=== PATIENT | male | born 1970 ===

== ENCOUNTER 2020-09-11 13:10 | Outpatient (REF) | payer OTHER, MEDICAID, SELFPAY ==
--- NOTE | ~2020-09-11 | XR_ITS ---
EXAMINATION: THORACIC AND LUMBAR SPINE X-RAY CLINICAL INFORMATION: Pain COMPARISON: None TECHNIQUE: 3 views of the thoracic spine 5 views of the lumbar spine FINDINGS: Lumbar spine: Bone alignment is normal. No fracture or dislocation is seen. Disc spaces are normal. There is mild lower lumbar spine facet arthritis at L5. No pars defect is seen. Thoracic spine: Bone alignment is normal. No fracture or dislocation is seen. Disc spaces are normal. There is mild degenerative spondylosis of the mid to lower thoracic spine. Paraspinal soft tissues are unremarkable. XR/XR thoracic spine 2V IMPRESSION: Mild degenerative changes.
--- NOTE | ~2020-09-11 | XR_ITS ---
EXAMINATION: THORACIC AND LUMBAR SPINE X-RAY CLINICAL INFORMATION: Pain COMPARISON: None TECHNIQUE: 3 views of the thoracic spine 5 views of the lumbar spine FINDINGS: Lumbar spine: Bone alignment is normal. No fracture or dislocation is seen. Disc spaces are normal. There is mild lower lumbar spine facet arthritis at L5. No pars defect is seen. Thoracic spine: Bone alignment is normal. No fracture or dislocation is seen. Disc spaces are normal. There is mild degenerative spondylosis of the mid to lower thoracic spine. Paraspinal soft tissues are unremarkable. XR/XR lumbar spine 4V min IMPRESSION: Mild degenerative changes.
== END 2020-09-11 13:11 | disposition home or self-care (01) ==
LOC: HO.XRAY 13:10
PROVIDERS: PCP Internal Medicine; Referring Provider Internal Medicine; Visit Provider Emergency Medicine
DX: M54.5 Low back pain (principal)
CPT/HCPCS: 72070; 72110

== ENCOUNTER 2020-11-05 14:00 | Outpatient (RCR) | payer OTHER, MEDICAID, SELFPAY | END 2020-11-05 15:50 | disposition home or self-care (01) | LOC: HO.PT 14:00 | PROVIDERS: PCP Internal Medicine; Visit Provider Emergency Medicine | DX: M54.5 Low back pain (principal) | CPT/HCPCS: 97110; 97161; 97530 ==

== ENCOUNTER → 2020-11-26 07:56 | Outpatient (BNVA) | payer OTHER, MEDICAID, SELFPAY | PROVIDERS: PCP Internal Medicine; Referring Provider Internal Medicine; Visit Provider Physician Assistant ==

== ENCOUNTER 2021-01-29 09:02 | Day surgery (SDC) | payer OTHER, MEDICAID, SELFPAY ==
--- NOTE | 2021-01-29 09:18 | P.CONAN_ITS ---
HPI - Anesthesia Eval Consult details Narrative: 50 yo M for colonoscopy PMFSH Active Problems Active Problems: All Active Problems (Updated 01/23/21 @ 12:42 by Shirley Sharp RN) Encounter for screening colonoscopy (Acute) Past Medical History Medical History (Updated 01/23/21 @ 12:42 by Shirley Sharp, RN) HTN (hypertension) Hyperlipidemia IGT (impaired glucose tolerance) Left lumbar radiculopathy DAWNA (obstructive sleep apnea) Functional capacity: independent ambulation Family History Family history of problems with anesthesia: No Surgical History History of Problems with Anesthesia: No Social History Social History (Updated 11/26/20 @ 08:26 by Mounika Armstrong PA-C) Household Members Other:: Alcohol intake: never Patient Tobacco Use Status: Never used Tobacco Use of substances other than those prescribed or required for medical reasons: No Are you DNR?: No Advance Directives: No Advance Directives Information Provided: Yes Current occupational status: employed 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[employer], 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 [employer] Meds Allergies Allergy/AdvReac Type Severity Reaction Status Date / Time seafood Allergy Severe respiratory Verified 01/23/21 12:42 Home Medications Medication Instructions Recorded Confirmed Last Taken Type atorvastatin 10 mg tablet 10 mg PO DAILY 11/26/20 01/23/21 Unknown History chlorthalidone 25 mg tablet 25 mg PO DAILY 11/26/20 01/23/21 Unknown History metformin 500 mg tablet 500 mg PO DAILY 11/26/20 01/23/21 Unknown History Exam Exam Date and Time: January 29, 202118 Airway Mallampati Class: III TM Dist: >3cm Neck ROM: Full Loose/Missing/Broken Teeth: Yes Heart: rrr Lungs: b/l clear breath sounds Assessment and Plan Assessment Anesthesia Assessment: Anesthesia Plan Discussed Final Anesthetic Review Family History of Problems with Anesthesia: No History of Problems with Anesthesia: No NPO: Yes ASA Class: II Patient Risk: Intermediate Procedure Risk: Intermediate Anesthetic Plan Anesthetic Plan: MAC: Disposition: Standard PACU
[2021-01-29 09:26] LABS: Glucose, Whole Blood 115 mg/dL (60-115)
[2021-01-29 09:31] VITALS: BP 141/85; PULSE 74; RESP 20; TEMP 36.1; O2SAT 99; BMI 27.8
[2021-01-29] MEDS: Lactated Ringers 1,000 ML 80 ML IVCONT (09:44)
--- NOTE | 2021-01-29 09:44 | MHC.SHP ---
Pre-Procedural Eval Section A Date of Service: 01/29/21 Section B Chief Complaint: Screening Relevant Family History (Specify if Yes): No Relevant Social History: None Present Medications: see Short Stay Collaborative assessment Medical History: Significant History (HTN (hypertension) Hyperlipidemia IGT (impaired glucose tolerance) Left lumbar radiculopathy DAWNA (obstructive sleep apnea)) History of Previous Operations: No relevant previous surgery Allergies: Allergies Allergy/AdvReac Type Severity Reaction Status Date / Time seafood Allergy Severe respiratory Verified 01/23/21 12:42 Review of Systems Sugical H&P ROS: Negative: Constitution, Cardiovascular, Respiratory, Neurological, Psychiatric, Hem-Onc, Allergic/Immunologic, Gastrointestinal, Genitourinary, Musculoskeletal, Integumentary, Endocrine and Eyes/Ears/Nose/Throat Exam Surgical H&P Exam: Normal: HEENT, Normal: Heart, Normal: Lungs, Normal: Extremities, Normal: Abdomen, Normal: Skin and Normal: Neurological Plan Diagnosis/Plan: Unchanged I have reviewed the history and physical and performed a pertinent physical examination on my patient. No changes have occurred unless specified.
--- NOTE | 2021-01-29 10:21 | P.OP_ITS ---
Operative Note Operative Note Date of Service: 01/29/21 Narrative: Operative Information Procedure Description: Colonoscopy COLONOSCOPY Instrument: Olympus variable stiffness adult scope 190L Colonoscopy Monitoring: Vital signs and clinical assessment, continuous EKG monitoring, Pulse oximetry, Carbon Dioxide monitoring and blood pressure monitoring were done throughout the procedure. Colon withdrawal time was 8 minutes. Procedure: The patient was placed in the left lateral decubitis position and pre-procedure medications were administered. After a digital rectal examination of the ano-rectum, the video colonoscope was inserted into the rectum and advanced through the colon to the cecum/TI. The colonoscope was slowly withdrawn in a retrograde panoramic fashion and the colon mucosa was carefully examined including a retroflexed view of the rectum. Findings and interventions are described below. Procedure Difficulty: easy Findings: Terminal Ileum-normal Cecum:normal Ascending Colon: normal Transverse Colon -normal Descending Colon:normal Sigmoid Colon: normal Rectum: Retroflexion with small internal hemorrhoids, grade I Anorectum - normal Colon preparation: [place] Bowel Preparation Scale Right colon; 3 Transverse colon: 3 Left colon; 3 (0 = Unprepared colon segment with mucosa not seen due to solid stool that cannot be cleared. 1 = Portion of mucosa of the colon segment seen, but other areas of the colon segment not well seen due to staining, residual stool and/or opaque liquid. 2 = Minor amount of residual staining, small fragments of stool and/or opaque liquid, but mucosa of colon segment seen well. 3 = Entire mucosa of colon segment seen well with no residual staining, small fragments of stool or opaque liquid) Impression and Post Procedure Diagnosis: internal hemorrhoids Plan: High fiber diet leaflet Avoid straining at stool, epsom salts and sitz bath, anusol supps or cream Repeat Colonoscopy in 10 years or earlier if clinically indicated Above findings were reviewed with the patient and relevant handouts were provided if indicated.
--- NOTE | 2021-01-29 10:21 | PM.OP ---
Brief Operative Note Date of Service: 01/29/21 Pre-op diagnosis: colon screen Post-op diagnosis: same Procedure: see op note Surgeon: Shayne Hughes MD Anesthesia: MAC Was an Contact Center Analyst used for this Procedure?: No Estimated blood loss (mL): 0 Condition: stable Disposition: PACU
[2021-01-29 10:24] VITALS: BP 111/79; PULSE 73; RESP 16; TEMP 36.2; O2SAT 100
[2021-01-29 10:40] VITALS: BP 131/85; PULSE 72; RESP 16; TEMP 36.2; O2SAT 100
[2021-01-29 11:07] VITALS: BP 117/79; PULSE 64; RESP 16; O2SAT 100
== END 2021-01-29 11:35 | disposition home or self-care (01) ==
PROVIDERS: PCP Internal Medicine; Visit Provider Internal Medicine Gastroenterology
PROC: 0DJD8ZZ Inspection of Lower Intestinal Tract, Via Natural or Artificial Opening Endoscopic (ICD-10-PCS; CPT 45378; principal; 2021-01-29 10:10)
DX: Z12.11 Encounter for screening for malignant neoplasm of colon (principal); K64.0 First degree hemorrhoids; I10 Essential (primary) hypertension; E78.5 Hyperlipidemia, unspecified; G47.33 Obstructive sleep apnea (adult) (pediatric); R73.02 Impaired glucose tolerance (oral); Z79.84 Long term (current) use of oral hypoglycemic drugs; Z79.899 Other long term (current) drug therapy
CPT/HCPCS: 45378; 82947

== ENCOUNTER → 2022-03-17 14:56 | Outpatient (REF) | payer OTHER, MEDICAID, SELFPAY | LOC: HO.SL 14:56 | PROVIDERS: Visit Provider Nurse Practitioner Family | DX: G47.33 Obstructive sleep apnea (adult) (pediatric) (principal); R40.0 Somnolence | CPT/HCPCS: 95806 ==

== ENCOUNTER → 2022-05-22 14:42 | Outpatient (BNVA) | payer OTHER, MEDICAID, SELFPAY | PROVIDERS: PCP Internal Medicine; Visit Provider Nurse Practitioner Family | DX: Z13.89 Encounter for screening for other disorder (principal) ==

== ENCOUNTER 2022-09-15 12:53 | Outpatient (REF) | payer OTHER, MEDICAID, SELFPAY ==
--- NOTE | ~2022-09-15 | XR_ITS ---
EXAMINATION: XR LUMBOSACRAL SPINE CLINICAL INFORMATION: Chronic low back pain for years. COMPARISON: None available. TECHNIQUE: Three views of the lumbosacral spine. FINDINGS: The vertebral bodies and posterior elements are normal. The disc spaces are preserved and the vertebral alignment is normal. The paraspinal soft tissues are normal. XR/XR lumbar spine 2-3V IMPRESSION: Unremarkable lumbar spine exam.
== END 2022-09-15 12:54 | disposition home or self-care (01) ==
LOC: HO.HHCX 12:53
PROVIDERS: Visit Provider Nurse Practitioner Primary Care
DX: M54.16 Radiculopathy, lumbar region (principal)
CPT/HCPCS: 72100

== ENCOUNTER 2023-05-21 14:26 | Outpatient (AMB) | payer OTHER, SELFPAY ==
--- NOTE | 2023-05-21 14:38 | A.OFFVIS_ITS ---
Intake Vital Signs 05/21/23 14:44 Height 5 ft 11 in Weight 190 lb 6 oz BMI 26.5 BP 112/70 Blood Pressure Location Lt brachial Position Sitting Pulse 77 Pulse Source Pulse Oximeter Pulse Oximetry (%) 95 Oxygen Delivery Method Room Air Intake Visit Reasons: 1YR f/u after sleep test - LVM w/address Intake Note: Patient presents for 1 year f/u. Allergies seafood Allergy (Severe, Verified 05/21/23 14:43) respiratory HPI HPI Comments History of Present Illness Details 52 y/o male patient presents for follow up of DAWNA on CPAP. The home sleep study result was severe degree of sleep apnea. The AHI was 28/hr and oxygen nida was 83%. Pt states that he uses CPAP nightly, overall sleeps well and his body ache also has resolved. The CPAP compliance and therapy response (02/18/23-05/18/23) reviewed. He is on APAP [id number]. The usage days 99% and average usage hours 4 hours and 50 min. The max pressure is 7.4 and the AHI was 1.1. 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 Review of Systems Const All systems reviewed & are unremarkable except as noted in HPI and below ENT Reports Normal hearing present Neuro Reports Normal hearing present Physical Exam Vital Signs: Last Vital Signs Pulse 77 05/21/23 14:44 BP 112/70 05/21/23 14:44 Pulse Ox 95 05/21/23 14:44 Oxygen Delivery Method Room Air 05/21/23 14:44 BMI result Body Mass Index 26.5 Const General: cooperative Nutritional Appearance: average body habitus Orientation/consciousness: patient oriented x3 Neck Neck: Yes full ROM and Yes supple Resp Effort & Inspection: normal respiratory effort and able to speak in complete sentences Neuro General: patient oriented x3 and gait normal Cranial nerves: Yes Bilaterally intact EOM present, Yes Normal facial strength present, Yes Midline tongue present, Yes Symmetric palate elevation present, Yes Normal hearing present, Yes Ability to bilaterally rotate head present and Yes Ability to bilaterally elevate shoulders present Cognition (Neuro): normal cognition Gait exam (Neuro): Normal gait present Motor exam (neuro): 5/5 motor strength present throughout Psych Appearance: grossly normal Mental Status: mental status grossly normal Speech and movement: Normal speech and movement present Affect: normal affect Attitude: cooperative Assessment & Plan Assessment & Plan (1) DAWNA (obstructive sleep apnea): Code(s): G47.33 - Obstructive sleep apnea (adult) (pediatric) Plan Advised patient to continue to use APAP [id number] as patient experiences good clinical effects. Stressed compliance, uses CPAP nightly and more than 4 hours. Clean mask and tubing regularly. Coding Level of Care Code Est Pt Level 3 (27691) Diagnoses DAWNA (obstructive sleep apnea) G47.33
[2023-05-21 14:44] VITALS: BP 112/70; PULSE 77; O2SAT 95; BMI 26.5
== END 2023-05-21 14:56 | disposition home or self-care (01) ==
PROVIDERS: Visit Provider Nurse Practitioner Family
DX: G47.33 Obstructive sleep apnea (adult) (pediatric) (principal)
CPT/HCPCS: 99213

== ENCOUNTER → 2023-05-21 14:26 | Outpatient (BNVA) | payer OTHER, SELFPAY | PROVIDERS: Visit Provider Nurse Practitioner Family ==

== ENCOUNTER 2023-06-03 08:56 | Outpatient (AMB) | payer OTHER, SELFPAY ==
--- NOTE | 2023-06-03 08:58 | A.OFFVIS_ITS ---
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 Intake Note: New patient fx CAD c/o chest tightness at times Director Telecommunications Required: No Allergies seafood Allergy (Severe, Verified 05/21/23 14:43) respiratory [id number] Reductase Inhibitor Allergy (Intermediate, Verified 06/03/23 09:05) Muscle Pain Medication List - Last Reconciled 06/03/23 by Ricky Boateng MD bisacodyl (Dulcolax (bisacodyl)) 10 mg (2 x 5 mg) PO ONCE 1 day chlorthalidone 25 mg PO DAILY metformin ER 500 mg PO QPM HPI HPI Comments History of Present Illness Details Thank you for referring Arnaldo in cardiology consultation today for intermittent retrosternal chest tightness. He has a pleasant 52-year-old male, concerned about his heart health given his strong family history of premature coronary artery disease with his brother dying in his early 40s with sudden cardiac and father having an CO at age 60. He also has history of marked hyperlipidemia with last LDL of 190 mg/dL not corrected as he could not tolerate statin therapy with diffuse muscle aches. He also has history of hypertension and diabetes which are currently being managed through your office. He says blood pressures been well controlled. Her last few months he has been having intermittent episodes of retrosternal chest tightness, under stressful situations. Symptoms last for less than a minute. Usually happens at nighttime when he is concerned and symptoms then subside when he sits up. This associated with shortness of breath. He has no exertional chest pain or shortness of breath and says he is fairly active in his day-to-day life. Takes all his medications regularly. Denies any orthopnea, PND, leg edema. No prolonged palpitations irregular heartbeat. No lightheadedness, syncope. 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 Review of Systems Const Denies chills, Denies daytime sleepiness, Denies fatigue, Denies fever(s), Denies frequent falls, Denies poor appetite, Denies snoring, Denies stops breathing during sleep, Denies weakness, Denies weight gain and Denies weight loss Eyes Denies loss of vision ENT Denies dizziness and Denies hearing loss Card Denies chest pain, Denies claudication, Denies leg edema, Denies lightheadedness, Denies palpitations, Denies dyspnea, Denies dyspnea on exertion and Denies orthopnea Resp Denies cough, Denies excessive phlegm production, Denies dyspnea, Denies dyspnea on exertion, Denies snoring and Denies wheezing GI Denies abdominal pain, Denies hematochezia, Denies change in bowel habits, Denies nausea and Denies vomiting Denies dysuria and Denies urinary frequency Musc Denies arthralgias, Denies muscle weakness, Denies numbness and Denies other (frequent falls) Skin/Breast Denies nail changes and Denies rash Neuro Denies Abnormal speech present, Denies dizziness, Denies frequent falls, Denies loss of vision, Denies memory loss, Denies numbness and Denies weakness Psych Denies depression and Denies memory loss Endo Denies fatigue and Denies palpitations Vitor/Lymph Reports easy bruising and Reports other (anemia) Aller/Immun Denies wheezing Physical Exam Vital Signs: Last Vital Signs Pulse 67 06/03/23 08:59 BP 110/70 06/03/23 08:59 BMI result Body Mass Index 26.1 Const General: cooperative, comfortable, no acute distress, well developed, alert, awake and Physically active Nutritional Appearance: average body habitus and well nourished Orientation/consciousness: patient oriented x3 Limitations: no limitations HEENT Head: Yes normocephalic and Yes atraumatic Neck Neck: Yes trachea midline, Yes supple and Yes no JVD Resp Effort & Inspection: normal respiratory effort Auscultation: clear to auscultation bilaterally Cardio Jugular venous distension: no JVD Palpation: normal PMI Rate: regular rate Rhythm: regular rhythm Heart sounds: S1 normal heart sound present, S2 normal heart sound present, no click, no gallops, no murmurs and no rubs GI Auscultation: normal bowel sounds Skin General skin exam: no rashes or lesions noted Neuro General: patient oriented x3 and no focal motor deficits Speech: No Abnormal speech present Extrem General: Yes no clubbing, cyanosis or edema Psych Appearance: grossly normal Office Procedures EKG Details: EKG shows normal sinus rhythm with normal EKG [id number], Complete Assessment & Plan Assessment & Plan (1) Atypical chest pain: Code(s): R07.89 - Other chest pain Plan: Atypical chest pain in this middle-aged man although with significant risk factors including premature atherosclerosis/sudden cardiac that, hypertension, impaired glucose tolerance and marked hyperlipidemia. Need to rule out underlying obstructive coronary artery disease as he is having stress-induced chest discomfort although symptoms are atypical. Would suggest him to undergo a regular treadmill exercise stress test given that he has normal EKG. If he can perform high workload without any significant discomfort and EKG changes he most likely has nonobstructive disease. This was discussed with him. He understands agrees. Will also obtain echocardiogram to evaluate for LV systolic and diastolic function to evaluate for hypertensive heart disease and pulmonary hypertension and RV systolic function. These tests will be scheduled in near future and further treatment based on the findings. (2) HTN (hypertension): Code(s): I10 - Essential (primary) hypertension Plan: Hypertension which is currently well optimized. Importance of good blood pressure control was discussed. Continue CPAP therapy. Low-salt diet was discussed. Advised to monitor blood pressure at home maintain a log. Goal blood pressure less than 130/84. Continue aggressive risk factor modification goal hemoglobin A1c less than 7%. His LDL significantly elevated advised to follow-up lipid panel in near future. If he remains significantly elevated and with the statin intolerant would be a candidate for PCSK9 inhibitor therapy. This was discussed with him. Will also suggest a coronary calcium score to assess for presence of underlying coronary atherosclerosis and/or further risk stratification if he has significant elevated calcium score. He understands and agrees. Will follow up in the clinic in 6 weeks time, sooner p.r.n.. Thank you for allowing me to partake in his care Medications: Refilled bisacodyl (Dulcolax (bisacodyl)) Take 2 tablets by mouth at 12:00pm the day before your procedure. 10 mg (2 x 5 mg) PO ONCE 2 tabs 0RF colonoscopy prep 1 day Z12.11 - Encounter for screening for malignant neoplasm of colon Coding Level of Care Code New Pt Level 4 (28080) Diagnoses Atypical chest pain R07.89 HTN (hypertension) I10 CPT Codes EKG - CPT: 19530-[id number], Complete ([id number])
[2023-06-03 08:59] VITALS: BP 110/70; PULSE 67; BMI 26.1
== END 2023-06-03 09:31 | disposition home or self-care (01) ==
PROVIDERS: PCP Internal Medicine; Visit Provider Internal Medicine Cardiovascular Disease
DX: R07.89 Other chest pain (principal); I10 Essential (primary) hypertension
CPT/HCPCS: 93010; 99204

== ENCOUNTER → 2023-06-03 08:56 | Outpatient (BNVA) | payer OTHER, SELFPAY | PROVIDERS: PCP Internal Medicine; Visit Provider Internal Medicine Cardiovascular Disease | DX: R07.89 Other chest pain (principal); I10 Essential (primary) hypertension | CPT/HCPCS: 93005 ==

== ENCOUNTER 2023-06-12 07:24 | Outpatient (REF) | payer OTHER, SELFPAY ==
[2023-06-12 08:43] LABS: Alanine Aminotransferase 18 U/L (0-40); Albumin Level 4.1 g/dL (3.5-5.0); Alkaline Phosphatase 59 U/L (39-117); Anion Gap 14 (12-20); Aspartate Amino Transferase 16 U/L (5-37); Bilirubin Direct 0.2 mg/dL (0.0-0.5); Bilirubin Total 0.8 mg/dL (0.0-1.0); Blood Urea Nitrogen 16 mg/dL (9-16); Calcium 9.4 mg/dL (8.4-10.2); Carbon Dioxide 31 mmol/L (22-29); Chloride 100 mmol/L (96-108); Cholesterol 245 mg/dL (<200); Estimated Glomerular Filt Rate > 60; Glucose Random 128 mg/dL (60-115); HDL Cholesterol 43 mg/dL (>40); LDL Cholesterol Calculated 178 mg/dL (<100); Potassium 3.5 mmol/L (3.3-5.1); Sodium 141 mmol/L (135-145); Total Protein 7.6 g/dL (6.5-8.0); Triglycerides 120 mg/dL (<150)
== END 2023-06-12 07:25 | disposition home or self-care (01) ==
LOC: HO.LAB 07:24
PROVIDERS: PCP Internal Medicine; Visit Provider Internal Medicine
DX: E78.2 Mixed hyperlipidemia (principal)
CPT/HCPCS: 36415; 80048; 80061; 80076

== ENCOUNTER → 2023-07-21 08:01 | Outpatient (REF) | payer OTHER, SELFPAY ==
--- NOTE | 2023-07-21 08:04 | CA_ITS ---
Acquisition Time: 2023-07-21 09:02:09 Total Exercise Time: 00:08:59 Test Indications: CHEST PAIN Medications: METFORMIN CHLORTHALIDONE Protocol: MORENA Max HR: 155 BPM 92% of Pred: 168 BPM Max BP: 190/090 mmHG Max Work Load: 10.1 METS Exercise stress test exercise 8 min 59 sec of Morena achieving 92% MPHR, without shortness of breath, without chest pain, with 8/10 chest tightness (started at 5 mins), without arrhythmias, with HTN response max BP 190/90, without EKG changes, THroat tightness resolved by 5 min recovery. Test reviewed with Dr. Boateng Referred By: Ricky Boateng Overread By: Gabby Bueno
--- NOTE | 2023-07-21 08:04 | CA_ITS ---
Transthoracic Echocardiogram Patient (Last, First, Middle): Arnaldo Hutson, Gender: Male Date of : 1970 Age: 52 Procedure Date: 07/21/2023 Procedure Type: Transthoracic Echocardiogram Location: OP Height: 180.34 cm Weight: 82.1 kg BSA: 2.02 m2 Heart Rate: bpm BP: 116 / 86 mmHg Electronic Typesetting Machine Operator: [email or web address] Referring MD: Ricky Boateng MD Catheterization Laboratory Technician: Ricky Boateng MD Symptoms: R07.89 - Other chest pain Study Quality: Adequate ECG Rhythm: Sinus Conclusions: - 1. Normal LV ejection fraction of 60 65% with impaired relaxation filling pattern 2. Mild aortic regurgitation 3. Normal RV systolic pressure 4. No gross pericardial effusion Findings Left Ventricle Normal left ventricular size, thickness, and systolic function. The visually estimated ejection fraction is between 60-65%. Spectral Doppler is indicative of an impaired relaxation filling pattern. E/E prime ratio is between 8 and 15 consistent with indeterminate filling pressures. Peak GLS is -17.4%, borderline low. Right Ventricle Normal right ventricular cavity size and systolic function. Atria Both atria are normal in size. There is no evidence of interatrial shunt. Aortic Valve Normal aortic valve structure and function. There is no aortic valve stenosis. There is mild aortic valve regurgitation. Mitral Valve Normal mitral valve structure and function. There is trace mitral valve regurgitation. There is no mitral valve stenosis. Pulmonic Valve The pulmonic valve is likely normal. Tricuspid Valve Normal tricuspid valve structure. There is trace tricuspid valve regurgitation. The right ventricular systolic pressure is normal. The right ventricular systolic pressure is 14 mmHg. Normal right atrial pressure. There is no evidence of pulmonary hypertension. Great Vessels All visible segments of the aorta are normal in size. The pulmonary artery was not well visualized. Venous The inferior vena cava is normal in size and collapses greater than 50% with inspiration. Pericardium/Pleural There is no evidence of pericardial effusion. Prior Study Comparison No prior study available for comparison. Measurements 2D Linear Measurements IVSd: 0.99 0.6-0.9/0.6-1.0 cm LVIDd: 4.47 3.9-5.3/4.2-5.9 cm LVIDd Index: 2.21 2.4-3.2/2.2-3.1 cm/m2 LVIDs: 2.93 2.0-3.6 cm LVPWd: 0.76 0.7-1.1 cm LA Diam: 2.70 2.7-3.8/3.0-4.0 cm LAIDs Index: 1.34 1.5-2.3 cm/m2 LV Mass: 157.14 67-162/88-224 g LV Mass Index: 77.79 43-95/49-115 g/m2 LVOT Diam: 2.10 3.0+(-)1.3 cm 2D Systolic Function EF 4C: 58.80 >55% EF 2C: 64.00 >55% EF BiP: 61.90 >55% Mitral Valve MV Pk E: 0.66 MV PK A: 0.65 MV Decel Time: 280.00 E/A: 1.00 E'Lateral: 11.50 E'Medial: 9.14 E/E' Med: 7.30 E/E' Lat: 5.80 PHT: 82.00 MVA PHT: 2.68 Decel [place]: 2.37 Aortic Valve AoV Pk Alfred: 1.23 AoV Mn Alfred: 0.81 AoV VTI: 0.27 AoV Pk Grad: 6.00 Aov Mn Grad: 3.00 JENNIFER Cont.VTI: 2.65 LVOT LVOT Pk Alfred: 0.95 LVOT Mn Alfred: 0.64 LVOT VTI: 0.21 LVOT Pk Grad: 4.00 LVOT Mn Grad: 2.00 LVOT Diam: 2.10 LVOT Area: 3.46 Diastolic Function MV Pk E: 0.66 MV Pk A: 0.65 E/A: 1.00 E'Medial: 9.14 E/E' Med: 7.30 E' Laterial: 11.50 E/E' Lat: 5.80 Right Ventricle TAPSE (mm): 26.70 TVS' Alfred: 12.00 Tricuspid Valve TR Pk Alfred: 1.69 TR Pk Grad: 11.00 RA Press: 3.00 RVSP: 14.00 Great Vessels Aorta Sinus of Valsalva: 3.71 2.0-3.[address] [place]: 3.08 1.7-3.4 cm Ao Asc: 3.40 2.1-3.4 cm Updated in Other Vendor System with Status of Final Ricky Boateng MD electronically signed on 07/22/2023 5:24:44 PM with status of Final
== END ==
LOC: HO.CARD 08:01
PROVIDERS: PCP Internal Medicine; Visit Provider Internal Medicine Cardiovascular Disease
DX: R07.89 Other chest pain (principal)
CPT/HCPCS: 93017; 93306; 93356

== ENCOUNTER → 2023-07-21 08:04 | Outpatient (BNV) | payer OTHER, SELFPAY | PROVIDERS: PCP Internal Medicine; Visit Provider Nurse Practitioner | DX: I35.1 Nonrheumatic aortic (valve) insufficiency (principal); R93.1 Abnormal findings on diagnostic imaging of heart and coronary circulation | CPT/HCPCS: 93016; 93018; 93320; 93325; 93350; 93356 ==

== ENCOUNTER 2023-08-18 14:46 | Outpatient (AMB) | payer OTHER, SELFPAY ==
--- NOTE | 2023-08-18 14:59 | MHC.OFFVIS ---
Vital Signs 08/18/23 15:00 Height 5 ft 11 in Weight 186 lb BMI 25.9 BP 112/62 Blood Pressure Location Lt brachial Position Sitting Pulse 74 Pulse Source Pulse Oximeter Intake Visit Reasons: follow-up testing Allergies seafood Allergy (Severe, Verified 05/21/23 14:43) respiratory Eszqwpo-RIG-YhO Reductase Inhibitor Allergy (Intermediate, Verified 06/03/23 09:05) Muscle Pain PFSH Medical History (Updated 08/18/23 @ 14:55 by Gabby Bueno NP) Abnormal stress test HTN (hypertension) IGT (impaired glucose tolerance) Hyperlipidemia DAWNA (obstructive sleep apnea) Left lumbar radiculopathy Family History Father Diabetes Heart attack Stroke Mother Diabetes Brother Heart attack Social History Household Members Other:: Alcohol intake: never Patient Tobacco Use Status: Never used Tobacco Current occupational status: employed 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[employer], 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 Review of Systems Const Denies weakness ENT Denies dizziness Card Denies chest pain, Denies chest pain with activity, Denies syncope, Denies rapid heart rate, Denies pedal edema, Denies edema, Denies leg edema, Denies lightheadedness, Denies palpitations, Denies dyspnea, Denies dyspnea on exertion and Denies orthopnea Resp Denies cough, Denies dyspnea and Denies dyspnea on exertion GI Denies hematochezia and Denies change in stool character Musc Denies abnormal gait, Denies muscle cramps, Denies muscle weakness, Denies numbness, Denies radiating pain into limb and Denies tingling Neuro Denies abnormal gait, Denies dizziness, Denies syncope, Denies numbness, Denies tingling and Denies weakness Endo Denies palpitations Physical Exam Vital Signs: Last Vital Signs Pulse 74 08/18/23 15:00 BP 112/62 08/18/23 15:00 BMI result Body Mass Index 25.9 Results Reviewed Results Reviewed: Exercise stress test exercise 8 min 59 sec of Shaun achieving 92% MPHR, without shortness of breath, without chest pain, with 8/10 chest tightness (started at 5 mins), without arrhythmias, with HTN response max BP 190/90, without EKG changes, THroat tightness resolved by 5 min recovery. Test reviewed with Dr. Boateng Conclusions: - 1. Normal LV ejection fraction of 60 65% with impaired relaxation filling pattern 2. Mild aortic regurgitation 3. Normal RV systolic pressure 4. No gross pericardial effusion Assessment & Plan Assessment & Plan (1) Hyperlipidemia: Code(s): E78.5 - Hyperlipidemia, unspecified (2) Atypical chest pain: Code(s): R07.89 - Other chest pain Category: Medical Plan Chest pain during stress test 10/25 with chest tightness and throat tightness. Will obtain CTA to assess further. Patient has seafood allergy - will send pre-medication to avoid reaction to contrast. Echocardiogram showed EF of 60-65% with impaired relaxation pattern. Patients last LDL on 06/12/2023 was 178. Needs to be lower. Will send for Repatha and repeat lipid panel in 3 months. History of statin intolerance. Patient agrees to plan. Orders: Orders Lipid Panel 08/18/23 E78.5 - Hyperlipidemia, unspecified Basic Metabolic Panel 08/18/23 E78.5 - Hyperlipidemia, unspecified CT Cardiac Coronary Angio 08/18/23 R07.89 - Other chest pain, R94.39 - Abnormal result of other cardiovascular function study Medications: New evolocumab (Repatha SureBraedenick) 140 mg subcut Q2W 2 mL 2RF prednisone 20 mg orally Take the morning and evening of the day before procedure and then the morning of procedure. 3 tabs 0RF diphenhydramine HCl (Allergy (diphenhydramine)) 25 mg orally Take the morning and evening of the day before procedure and then the morning of procedure.; 3 tabs 0RF famotidine 20 mg orally Take the morning and evening of the day before procedure and then the morning of procedure.; 3 tabs 0RF Coding Level of Care Code Est Pt Level 3 (47208) Diagnoses Hyperlipidemia E78.5 Atypical chest pain R07.89
[2023-08-18 15:00] VITALS: BP 112/62; PULSE 74; BMI 25.9
== END 2023-08-18 15:29 | disposition home or self-care (01) ==
PROVIDERS: PCP Internal Medicine; Visit Provider Nurse Practitioner
DX: E78.5 Hyperlipidemia, unspecified (principal); R07.89 Other chest pain
CPT/HCPCS: 99213

== ENCOUNTER → 2023-08-18 14:46 | Outpatient (BNVA) | payer OTHER, SELFPAY | PROVIDERS: PCP Internal Medicine; Visit Provider Nurse Practitioner | DX: E78.5 Hyperlipidemia, unspecified (principal); R07.89 Other chest pain ==

== ENCOUNTER 2023-12-04 07:25 | Outpatient (REF) | payer OTHER, SELFPAY ==
[2023-12-04 08:27] LABS: Anion Gap 11 (12-20); Blood Urea Nitrogen 11 mg/dL (9-16); Carbon Dioxide 32 mmol/L (22-29); Chloride 101 mmol/L (96-108); Cholesterol 137 mg/dL (<200); Estimated Glomerular Filt Rate > 60; Glucose Random 125 mg/dL (60-115); HDL Cholesterol 41 mg/dL (>40); LDL Cholesterol Calculated 74 mg/dL (<100); Sodium 141 mmol/L (135-145); Triglycerides 113 mg/dL (<150)
[2023-12-04 08:43] LABS: Appearance Urine Clear; Color Urine Yellow; Glucose Urine UA Negative (Negative); Leukocyte Esterase Urine Trace (Negative); Nitrite Urine Negative (Negative); PH 7.5 (5.0-9.0); UMIC TRIGGER UACC YES; Urine Blood Negative (Negative); Urine Ketones Negative (Negative); Urine Protein Negative (Neg-Trace)
[2023-12-04 09:15] LABS: Bacteria Urine None Seen (None Seen); Hyaline Casts Urine 0-2 /LPF (0-2); RBC Urine 0-2 /HPF (0-2); Squamous Epithelial Cell Urine 0-2 /HPF (0-2); WBC Urine 0-5 /HPF (0-5)
== END 2023-12-04 07:26 | disposition home or self-care (01) ==
LOC: HO.LAB 07:25
PROVIDERS: Internal Medicine; PCP Internal Medicine; Visit Provider Nurse Practitioner
DX: E78.5 Hyperlipidemia, unspecified (principal); R31.29 Other microscopic hematuria
CPT/HCPCS: 36415; 80048; 80061; 81001

== ENCOUNTER 2023-12-30 14:51 | Outpatient (AMB) | payer OTHER, SELFPAY ==
[2023-12-30 15:00] VITALS: BP 100/72; PULSE 77; BMI 35.2
--- NOTE | 2023-12-30 15:00 | A.OFFVIS_ITS ---
Vital Signs 12/30/23 15:00 Height 5 ft 1 in Weight 186 lb 8.177 oz BMI 35.2 BP 100/72 Pulse 77 Pulse Source Pulse Oximeter Intake Visit Reasons: f/up-CTA Transportation Job Titles Required: No Allergies seafood Allergy (Severe, Verified 12/30/23 15:02) respiratory Nnqulkx-ZBK-DkP Reductase Inhibitor Allergy (Intermediate, Verified 12/30/23 15:02) Muscle Pain Medication List - Last Reconciled 12/30/23 by Anjali [place] NP-C chlorthalidone 25 mg PO DAILY evolocumab (Repatha SureClick) 140 mg subcut Q2W metformin ER 500 mg PO QPM HPI HPI f/-CTA: Details: Arnaldo is a 53-year-old male with past medical history of hypertension, hyperlipidemia, sleep apnea who reported chest discomfort and underwent cardiac evaluation including CTA of the coronary arteries and now presents for follow- up. Today he reports he has been doing well with no concerning symptoms. He tells me he does not have any issues with recurrent chest discomfort. No shortness of breath, PND, orthopnea or edema. No lightheadedness, presyncope, syncope, falls. He is taking his Repatha as directed. He reports intolerance to statins with muscle aching. He does not wear his CPAP mask nightly. He says when he tries to wear it he finds that he takes it off in the night. He denies issues with daytime sleepiness. Taking meds as directed. 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 Cardiac risk factors of hypertension, hyperlipidemia, obesity, newer diabetes. He underwent a exercise stress test on 07/21/2023 with exercise 9 minutes and report of chest discomfort, no EKG changes. Echocardiogram done 07/21/2023 showing EF 60-65%, impaired relaxation, mild AR. He had a CTA of the coronary arteries done 12/16/2023 showing no hemodynamically significant coronary artery disease, no plaque noted. Test results reviewed with him. He tells me his prior chest discomfort has resolved. Continue with risk factor modification including good blood pressure and cholesterol control. Continue activity as tolerated. (2) HTN (hypertension): Code(s): I10 - Essential (primary) hypertension Category: Medical Plan: History of hypertension. He has been on chlorthalidone for blood pressure control. Recent labs do show potassium 3.0, creatinine 1.01. He does have a newer diagnosis of diabetes. Will have him stop chlorthalidone and start on low-dose lisinopril 5 mg daily. His blood pressure today is 100/72. PCP notified of this change. Repeat labs due in 7-10 days. (3) Hyperlipidemia: Code(s): E78.5 - Hyperlipidemia, unspecified Category: Medical Plan: LDL goal less than 100, ideally less than 70 in patient with newer diagnosis of diabetes. LDL had been uncontrolled at 178 on labs 06/12/2023. Patient has intolerance to statin with report of myalgias. He was recently started on Repat ayala. Repeat labs done 12/04/2023 showed LDL 74. The importance of good cholesterol control reviewed with him. Continue Repatha. He will follow with his PCP and Cardiology follow-up 1 year, sooner if needed. (4) DAWNA (obstructive sleep apnea): Code(s): G47.33 - Obstructive sleep apnea (adult) (pediatric) Category: Medical Plan: History of sleep apnea with CPAP however he reports that he is not compliant with it each night. When he does wear it he finds that he takes it off. The importance of CPAP compliance reviewed. Plan Time spent on chart review, documentation, interview and assessment Medications: New lisinopril Stop Chlorthalidone Start Lisinopril 5 mg PO DAILY 30 tabs 5RF Coding Level of Care Code Est Pt Level 4 (25926) Complex EM visit Add On G2211 Diagnoses Atypical chest pain R07.89 HTN (hypertension) I10 Hyperlipidemia E78.5 DAWNA (obstructive sleep apnea) G47.33 Time Spent (min) 32
== END 2023-12-30 15:30 | disposition home or self-care (01) ==
PROVIDERS: PCP Internal Medicine; Visit Provider Nurse Practitioner Family
DX: R07.89 Other chest pain (principal); I10 Essential (primary) hypertension; E78.5 Hyperlipidemia, unspecified; G47.33 Obstructive sleep apnea (adult) (pediatric)
CPT/HCPCS: 99214

== ENCOUNTER → 2023-12-30 14:51 | Outpatient (BNVA) | payer OTHER, SELFPAY | PROVIDERS: PCP Internal Medicine; Visit Provider Nurse Practitioner Family ==

== ENCOUNTER 2024-01-08 07:47 | Outpatient (REF) | payer OTHER, SELFPAY ==
[2024-01-08 08:18] LABS: Estimated Average Glucose 114 mg/dL; Hemoglobin A1C 134.4718 umol/L; Hemoglobin A1c % 5.6 % (<6.0); Total Hemoglobin (HGBA1C) 3562.5295 umol/L
[2024-01-08 08:31] LABS: Anion Gap 13 (12-20); Blood Urea Nitrogen 12 mg/dL (9-16); Calcium 8.9 mg/dL (8.4-10.2); Carbon Dioxide 25 mmol/L (22-29); Chloride 109 mmol/L (96-108); Estimated Glomerular Filt Rate > 60; Glucose Random 106 mg/dL (60-115); Potassium 3.8 mmol/L (3.3-5.1); Sodium 143 mmol/L (135-145)
[2024-01-08 08:50] LABS: Prostate Specific Antigen Scr 1.27 ng/mL (<0.05-4.0)
== END 2024-01-08 07:48 | disposition home or self-care (01) ==
LOC: HO.LAB 07:47
PROVIDERS: PCP Internal Medicine; Referring Provider Internal Medicine; Visit Provider Nurse Practitioner
DX: Z00.00 Encounter for general adult medical examination without abnormal findings (principal); I10 Essential (primary) hypertension; R73.02 Impaired glucose tolerance (oral); Z12.5 Encounter for screening for malignant neoplasm of prostate
CPT/HCPCS: 36415; 80048; 83036; 84153

== ENCOUNTER → 2024-04-10 14:14 | Outpatient (BNVA) | payer OTHER, SELFPAY | PROVIDERS: PCP Internal Medicine; Visit Provider Physician Assistant Medical | DX: S60.211A Contusion of right wrist, initial encounter (principal); S39.012A Strain of muscle, fascia and tendon of lower back, initial encounter; W00.0XXA Fall on same level due to ice and snow, initial encounter | CPT/HCPCS: 73110; 99203 ==

== ENCOUNTER 2024-04-15 07:28 | Outpatient (REF) | payer MEDICAID, SELFPAY ==
--- OUTSIDE RECORDS SUMMARY | 2024-04-15 07:31 | XMS_ITS | Encounter Summary ---
Author Organization [employer] [facility] Address [address] [place] [address] 7 [place] [address] Care Team Providers Care Assistant Winemaker Name Role Phone Jonel Mcclure MD Primary Care Provide r Encounter Details Date Type Department Care Team (Late st Contact Info) Description 03/19/2022 Orders Only [facility] [address] [place] [phone] Peyton Ramirez MD [address] [place], [place] [phone] Social History Tobacco Use Types Packs/Day Years Used Date Smoking Tobacco: Never Smokeless Tobacco: Never Sex and Gender Information Value Date Recorded Sex Assigned at Male 01/05/2022 10:36 AM EDT Legal Sex Male 10:36 AM EDT Gender Identity Male 01/05/2022 10:36 AM EDT Sexual Orientation Straight 01/05/2022 10 :36 AM EDT COVID-19 Exposure Response Date Recorded In the last 10 days, have yo u been in contact with someone who was confirmed or suspected to have Coronavirus/COVID-19? No / Unsure 03/19/2022 9:00 AM EST documented as of this encounter Plan of Treatment Upcoming Encounters Date Type Department Care Team (Late st Contact Info) Description 05/04/2024 2:00 PM EST Office Visit [facility] [address] [place], [place] [phone] Jonel Mcclure MD [address] [place], [place] [phone] documented as of this encounter Visit Diagnoses Not on filedocumented in this encounter Care Teams Assistant Winemaker Relationship Specialty Start Date End Date Jonel Mcclure MD [address] [place] [phone] PCP - General Internal Medicine 03/21/19 documented as of this encounter
--- OUTSIDE RECORDS SUMMARY | 2024-04-15 07:31 | XMS_ITS | Encounter Summary ---
Author Organization [employer] Address [address] [facility] [address] [place] [address] Care Team Providers Care Catalog Specialist Name Role Phone oJnel Mcclure MD Primary Care Provide r Encounter Details Date Type Department Care Team ([facility] st Contact Info) Description 06/17/2023 Orders Only [facility] [address] [place], [place] [phone] Jonel Mcclure MD [address] [place], [place] [phone] Social History Tobacco Use Types Packs/Day Years Used Date Smoking Tobacco: Never Smokeless Tobacco: Never Alcohol Use Standard Drinks/Week Comments Not Currently 0 (1 standard drink = 0.6 oz pur e alcohol) Depression Answer Date Recorded Patient Health Questionnaire-9 Score 0 04/14/2022 Housing Stability Answer Date Recorded What is your housing situation today? I have sofia bishop 01/11/[address] you li ve. Do you have problems with any of the following? None of the above 01/11/2023 Food Insecurity Answer Date Recorded Within the past 12 months, y ou worried that your food would run out before you got money to buy more: Never True 01/11/2023 Within the past 12 months,th e food you bought just didn't last and you didn't have enough money to get more: Never True 08/2022 Transportation Answer Date Recorded In the past 12 months, has l ack of transportation kept you from medical appts, meetings, work or from getting things needed for daily living? No 01/11/2023 Utilities Answer Date Recorded In the past 12 months, has t he electric, gas, oil or water company threatened to shut off services in your home? No 01/11/2023 Depression Answer Date Recorded Patient Health Questionnaire-2 Score 0 04/14/2022 Sex and Gender Information Value Date Recorded Sex Assigned at Male 01/05/2022 10:36 AM EDT Legal Sex Male 10:36 AM EDT Gender Identity Male 01/05/2022 10:36 AM EDT Sexual Orientation Straight 01/05/2022 10 :36 AM EDT documented as of this encounter Plan of Treatment Upcoming Encounters Date Type Department Care Team (Late st Contact Info) Description 05/04/2024 2:00 PM EST Office Visit [facility] [address] [place] [phone] Jonel Mcclure MD [address] [place] [address] documented as of this encounter Procedures Procedure Name Priority Date/Time Associated Diagnosis Comments BASIC METABOLIC PANEL Routine 01/08/2024 7:57 AM EDT LIPID PANEL, STANDARD Routine 12/04/2023 7:48 AM EDT BASIC METABOLIC PANEL Routine 12/04/2023 7:48 AM EDT documented in this encounter Results * (ABNORMAL) Basic Metabolic Panel (01/08/2024 7:57 AM EDT) Sodium 143 135 - 145 mmol/L [facility] Potassium 3.8 3.3 - 5.1 mmol/L [facility] Chloride 109(H) 96 - 108 mmol/L [facility] Carbon Dioxide 25 22 - 29 mmol/L [facility] Anion Gap 13 12 - 20 [facility] Urea Nitrogen (BUN) 12 9 - 16 mg/dL [facility] Creatinine, Serum 1.01 0.5 - 1.4 mg/dL [facility] Estimated Glomerular Filt Rate >60 [facility] Comment:NOTE: For -Am erican individuals, multiply the result by 1.210.Chronic Kidney Disease: Estimated GFR < 60 mL/min/1.54n9Olabss Kidney Disease: Estimated GFR < 15 mL/min/1.73m2 Glucose 106 60 - 115 mg/dL [facility] Calcium 8.9 8.4 - 10.2 mg/dL [facility] 01/08/2024 7:57 AM EDT 01/08/2024 7:57 AM EDT us Generic External Data Provider LAB BLOOD ORDERAB LES Final Result Performing Organization Address City/[facility]/ZIP Co de Phone Number [facility] [address] [place] [address] [phone] * Lipid Panel, Standard (12/04/2023 7:48 AM EDT) Triglycerides 113 <150 mg/dL [facility] Comment:Desirable Triglyceri de: less than 150 mg/dLBorderline High Triglyceride 150-199 mg/dLHigh Triglyceride: 200-499 mg/dLVery High Triglyceride: greater than or equal to 5OO mg/dL Cholesterol 137 <200 mg/dL [facility] Comment:Desirable Cholestero l: less than 200 mg/dLBorderline High Cholesterol: 200-239 mg/dLHigh Cholesterol: greater than 239 mg/dL LDL Cholesterol Calculated 74 <100 mg/dL [facility] Comment:Desirable LDL: less than 100 mg/dLNear Optimal/Above Optimal LDL: 110- 129 mg/dLBorderline High LDL: 130-159 mg/dLHigh LDL: 160-189 mg/dLVery High LDL: greater than or equal to 190 mg/dL HDL Cholesterol 41 >40 mg/dL [facility] Comment:Desirable HDL: great er than 40 mg/dL Note: This HDL assay may give artificially low results in patients with liver disease. 12/04/2023 7:48 AM EDT 12/04/2023 7:49 AM EDT us Generic External Data Provider LAB BLOOD ORDERAB LES Final Result [facility] [address] [place] [phone] [phone] * (ABNORMAL) Basic Metabolic Panel (12/04/2023 7:48 AM EDT) Sodium 141 135 - 145 mmol/L [facility] Potassium 3.0(L) 3.3 - 5.1 mmol/L [facility] Chloride 101 96 - 108 mmol/L [facility] Carbon Dioxide 32(H) 22 - 29 mmol/L [facility] Anion Gap 11(L) 12 - 20 [facility] Urea Nitrogen (BUN) 11 9 - 16 mg/dL [facility] Creatinine, Serum 1.01 0.5 - 1.4 mg/dL [facility] Estimated Glomerular Filt Rate >60 [facility] Comment:NOTE: For -Am erican individuals, multiply the result by 1.210.Chronic Kidney Disease: Estimated GFR < 60 mL/min/[id number] Kidney Disease: Estimated GFR < 15 mL/min/1.73m2 Glucose 125(H) 60 - 115 mg/dL [facility] Calcium 10.0 8.4 - 10.2 mg/dL [facility] 12/04/2023 7:48 AM EDT 12/04/2023 7:49 AM EDT us Generic External Data Provider LAB BLOOD ORDERAB LES Final Result [facility] [address] [place] [address] [phone] documented in this encounter Visit Diagnoses Not on filedocumented in this encounter Additional Health Concerns Assessment Noted Time PHQ-9 Depression Total Score: 0 04/14/19 23 2:02 PM EST documented as of this encounter Care Teams Catalog Specialist Relationship Specialty Start Date End Date Jonel Mcclure MD [address] [place] [phone] PCP - General Internal Medicine 03/21/19 documented as of this encounter
--- OUTSIDE RECORDS SUMMARY | 2024-04-15 07:31 | XMS_ITS | Clinical Summary ---
Author Organization [employer] Address [address] [facility] [address] [place] [address] Care Team Providers Care Commercial Attache Name Role Phone Jonel Mcclure MD Primary Care Provide r Allergies Active Allergy Reactions Criticality Noted Date Comments Shellfish Allergy 02/12/2022 Medications naproxen (Naprosyn) 500 MG tablet Take 1 tablet by mouth in the morning and 1 tablet in the evening. 2 Active clobetasol (Temovate) 0.05 % ointmentIndicati ons:Eczema of both hands Apply to affected area twice a day 30 g 3 Active Blood Glucose Monitoring Suppl (FreeStyle Lite) w/Device kitIndications:P rediabetes 1 application 1 (one) time per week. 1 kit 3 Active chlorthalidone (Hygroton) 25 MG tabletIndication s:Essential hypertension TAKE 1 TABLET BY MOUTH EVERY MORNING 90 tablet 3 4 Active metFORMIN XR (Glucophage-XR) 500 MG 24 hr tabletIndication s:Impaired glucose tolerance TAKE 1 TABLET BY MOUTH EVERY EVENING DO NOT BREAK, CRUSH, DISSOLVE OR CHEW 90 tablet 3 4 Active FREESTYLE LITE test strip USE DIRECTED TO TEST BLOOD SUGAR ONCE A WEEK 50 strip 3 4 Active TRUEplus Lancets 33G misc USE DIRECTED TO TEST BLOOD SUGAR ONCE A WEEK 100 each 1 4 Active Repatha SureClick 140 MG/ML injection Inject 140 mg under the skin every 14 (fourteen) days. 09/13/202 4 Active Active Problems Problem Noted Date Diagnosed Date Precordial pain 03/18/2023 Assessment & Plan (12/28/2023 2:44 PM EDT): Evaluated by Cardiology for outpatient stress test, He was ordered a CTA as well. Last note 08/18/2023 CTA on 12/22/2023 : No evidence of hemodynamically significant coronary artery disease, No visualized plaque. Assessment & Plan (03/18/2023 2:40 PM EST): Patient towards the end of the conversation mentioned that there was an instance in which he had some chest discomfort, his prompted him to go to the ER but due to concerns of cost he decided against it Today he is not c/o any chest pain but upon further questioning he admits to intermittent chest discomfort, patient has multiple risk factors, HTN and hyperlipidemia Plan: Cardiology consult for outpatient stress test, if chest discomfort is to present again he needs to present himself to the nearest ER Erectile dysfunction 04/14/2022 Assessment & Plan (04/14/2022 4:44 PM EST): New complaint of this, reports morning erections, Plan: Testosterone free and Total, trial of Viagra Flexural eczema 04/14/2022 Assessment & Plan (12/28/2023 2:03 PM EDT): Uses Clobetasol BID PRN Seen by Amortization Schedule Clerk, Dr. Christopher 07/27/2023 Assessment & Plan (03/18/2023 2:19 PM EST): Uses Clobetasol BID PRN Would like to see a inspector brake lining, referral placed Assessment & Plan (04/14/2022 4:43 PM EST): Started on Clobetasol BID Preventative health care 04/12/2022 Assessment & Plan (12/28/2023 2:07 PM EDT): PSA: Normal : 07/28/2022 Colonoscopy: 01/29/2022 showed hemorrhoids Vaccines: He states he had them all in [place] Assessment & Plan (04/12/2022 10:49 AM EST): [facility]: Normal : 04/18/2019 Colonoscopy: 01/29/2022 showed hemorrhoids Vaccines: He states he had them all in [place] Essential hypertension 02/12/2022 Assessment & Plan (12/28/2023 2:00 PM EDT): Patient Here for a follow up regarding his Hypertension currently controlled on a regimen of: Chlorthalidone 25 mg po daily Given adequate blood pressure control will continue with current medical regimen. Most recent electrolytes, Bun and Creatinine done on: Lab Results Component Value Date NA 141 12/04/2023 NA 141 06/12/2023 K 3.0 (L) 12/04/2023 K 3.5 06/12/2023 CL 101 12/04/2023 CL 100 06/12/2023 BUN 11 12/04/2023 BUN 16 06/12/2023 CREATININE 1.01 12/04/2023 CREATININE 1.08 06/12/2023 Showed a low K Plan: Continue current regimen, Repeat BMP patient advised to adhere to a low sodium diet, encouraged about medication compliance, counseled about weight loss. Assessment & Plan (03/18/2023 2:08 PM EST): Patient Here for a follow up regarding his Hypertension currently controlled on a regimen of: Chlorthalidone 25 mg po daily Given adequate blood pressure control will continue with current medical regimen. Most recent electrolytes, Bun and Creatinine done on: 07/23/2022 were within normal limits. plan: Continue current regimen patient advised to adhere to a low sodium diet, encouraged about medication compliance, counseled about weight loss. Assessment & Plan (04/14/2022 1:59 PM EST): Patient Here for a follow up regarding his Hypertension currently controlled on a regimen of: Chlorthalidone 25 mg po daily Given adequate blood pressure control will continue with current medical regimen. Most recent electrolytes, Bun and Creatinine done on: 01/16/2022 were within normal limits. plan: Continue current regimen patient advised to adhere to a low sodium diet, encouraged about medication compliance, counseled about weight loss. Impaired glucose tolerance 02/12/2022 Assessment & Plan (12/28/2023 2:02 PM EDT): Patient here for a f/u Pt with persistent elevated FBS Repeat 12/04/2023 was 125 Obtain Hgb A1c we had recommended lifestyle changes, diet and exercise first he is on Metformin 500 mg po q PM. Assessment & Plan (04/14/2022 2:00 PM EST): Patient here for a f/u Pt with persistent elevated FBS Repeat 01/2022 was 105 we had recommended lifestyle changes, diet and exercise first he is on Metformin 500 mg po q pm. Lumbar radiculopathy 02/12/2022 Assessment & Plan (04/12/2022 10:47 AM EST): Pt initially evaluated at our [facility] , after pt c/o new onset of LBP after a twisting injury. He also reported a previous Hx of Lumbar radiculopathy Pt was referred to PT, finished, uses muscle relaxants prn Goes to our Acupuncture clinic regularly Mixed hyperlipidemia 02/12/2022 Assessment & Plan (12/28/2023 2:10 PM EDT): Most recent lipid profile from: 12/04/2023 shows an LDL of: 74 He was on a regimen of Atorvastatin 20 mg po at bedtime but he stopped due to c/o muscle pain and headaches, states symptoms went away after he stopped it. . Pt seen by Stunt Person who started him on Repatha advised to try to adhere to a low cholesterol diet, counseled and educated about diet and exercise, Patient encouraged to come up with a personal goal for weight loss. 3 month f/u Assessment & Plan (03/18/2023 2:41 PM EST): Most recent lipid profile from: 07/2022 shows a total cholesterol of: Component Ref Range & Units 7 mo ago 1 yr ago 2 yr ago 3 yr ago Cholesterol, Total <200 mg/dL 209??High?? 294??High?? 217??High?? 261??High?? HDL Cholesterol > OR = 40 mg/dL 41 39??Low?? 37??Low?? 35??Low?? Triglycerides <150 mg/dL 183??High?? 242??High?? CM 161??High?? 257??High?? CM LDL Cholesterol mg/dL (calc) 136??High?? 210??High?? CM 150??High?? CM 180??High?? CM He was on a regimen of Atorvastatin 20 mg po at bedtime but he stopped due to c/o muscle pain and headaches, states symptoms went away after he stopped it . Plan: Repeat Lipid profile, depending on results he might need to be on Praluent instead advised to try to adhere to a low cholesterol diet, counseled and educated about diet and exercise, Patient encouraged to come up with a personal goal for weight loss. 3 month f/u Assessment & Plan (04/12/2022 10:44 AM EST): Most recent lipid profile from: 01/16/2022 shows a total cholesterol of: 294 triglycerides of: 242 HDL of: 39 and LDL of: 210 Currently on a regimen of Atorvastatin recently increased to 20 mg po qhs . Plan: Repeat Lipid profile advised to try to adhere to a low cholesterol diet, counseled and educated about diet and exercise, Patient encouraged to come up with a personal goal for weight loss. 3 month f/u Obstructive sleep apnea syndrome 02/12/2022 Assessment & Plan (12/28/2023 2:34 PM EDT): Pt here for a f/u Pt has a Cpap machine at home, reports good results with it, using it regularly Assessment & Plan (04/14/2022 4:42 PM EST): Pt here for a f/u Pt finally has a Cpap machine at home, reports good results with it, using it regularly Encounters Date Type Department Care Team Description 04/10/2024 Orders Only [facility] External Provider, [facility] from Last 3 Months Immunizations Name Administration Dates Next Due INFLUENZA INJECTABLE QUADRIV ALANT CCIIV4 MDCK Multi-dose vial 01/31/2019 Influenza Injectable Quadriv alant Preservative Free IIV4 MDCK 12/01/2022,01/23/2021,01/02/2020 Influenza injectable quadriv alent preservative free 01/07/2022 Influenza, seasonal, injecta ble, preservative free 11/26/2023 Pfizer Covid-19 Vaccine 12+ 11/26/2023, Tdap 10/27/2021 Zoster, Recombinant 10/27/2021,07/29/2021 Social History Tobacco Use Types Packs/Day Years Used Date Smoking Tobacco: Never Passive Smoke Exposure: Never Smokeless Tobacco: Never Tobacco Cessation:Counseling Given: Not Answered Alcohol Use Standard Drinks/Week Comments Not Currently 0 (1 standard drink = 0.6 oz pur e alcohol) Alcohol Answer Date Recorded Frequency of Alcohol Consumption Not on file 12/28/2023 Average Number of Drinks Not on file 024 Frequency of Binge Drinking Not on file 12/07 Score 0 12/28/2023 Depression Answer Date Recorded Patient Health Questionnaire-9 Score 0 12/28/2023 Patient Health Questionnaire-9 Score 0 12/28/2023 Last PHQ-9: Questionnaire Data Not on file 1 Housing Stability Answer Date Recorded What is your housing situation today? I have sofia bishop 12/28/[address] you li ve. Do you have problems with any of the following? None of the above 12/28/2023 Food Insecurity Answer Date Recorded Within the past 12 months, y ou worried that your food would run out before you got money to buy more: Never True 12/28/2023 Within the past 12 months,th e food you bought just didn't last and you didn't have enough money to get more: Never True Transportation Answer Date Recorded In the past 12 months, has l ack of transportation kept you from medical appts, meetings, work or from getting things needed for daily living? No 12/28/2023 Utilities Answer Date Recorded In the past 12 months, has t he electric, gas, oil or water company threatened to shut off services in your home? No 12/28/2023 Depression Answer Date Recorded Patient Health Questionnaire-2 Score 0 12/28/2023 Internet Access Answer Date Recorded Internet Access Q1 Yes 12/28/2023 Internet Access Q2 Not on file 12/28/2023 Sex and Gender Information Value Date Recorded Sex Assigned at Male 01/05/2022 10:36 AM EDT Legal Sex Male 10:36 AM EDT Gender Identity Male 01/05/2022 10:36 AM EDT Sexual Orientation Straight 01/05/2022 10 :36 AM EDT Last Filed Vital Signs Vital Sign Reading Time Taken Comments Blood Pressure 130/84 12/28/2023 2:30 PM EDT Pulse 95 12/28/2023 2:30 PM EDT Temperature 36.8 ??C (98.2 ??F) 12/28/2023 2:30 PM ED T Respiratory Rate 20 12/28/2023 2:30 PM EDT Oxygen Saturation 95% 12/28/2023 2:30 PM EDT Inhaled Oxygen Concentration - - Weight 85.3 kg (188 lb) 12/28/2023 2:30 PM EDT Height 180.3 cm (5' 11 ) 12/28/2023 2:30 PM EDT Body Mass Index 26.22 12/28/2023 2:30 PM EDT Plan of Treatment Upcoming Encounters Date Type Department Care Team (Late st Contact Info) Description 05/04/2024 2:00 PM EST Office Visit [facility] [address] [place] [address] Jonel Mcclure MD [address] [place] [address] Health Maintenance Due Date Last Done Comments CT Colonography 1970 FIT DNA/Cologuard 1970 FIT 1970 FOBT 1970 Sigmoidoscopy 1970 Hepatitis B Vaccines (1 of 3 - 19+ 3-dose series) 1989 Pneumococcal Vaccine: 50+ Years (1 of 1 - PCV) 2020 Alcohol/Substance Use Screening 12/27/2024 12/28/2023 Depression Screening 12/27/2024 12/28/2023, 12/28/19 24 SDOH Screening 12/27/2024 12/28/2023 Tobacco Screening 12/27/2024 12/28/2023 Lipid Panel 12/03/2028 12/04/2023, 04/0 08/2023, 07/23/2022, Additional history exists Colonoscopy 01/29/2031 01/29/2021 Colorectal Cancer Screening 01/29/2031 DTaP/Tdap/Td Vaccines (2 - Td or Tdap) 2031 10/27/2021 RSV Patients and Patients Aged 60 years or older (1 - 1-dose 75+ series) 2045 Zoster Vaccines Completed 10/27/2021, 07/29/2021 HIV Screening Completed 07/23/2022 Hepatitis C Screening Completed 07/23/2022 COVID-19 Vaccine Completed 11/26/2023, , 01/07/2022, Additional history exists Influenza Vaccine Completed 11/26/2023, , 01/07/2022, Additional history exists HIB Vaccines Aged Out No longer eligi ble based on patient's age to complete this topic HPV Vaccines Aged Out No longer eligi ble based on patient's age to complete this topic Hepatitis A Vaccines Aged Out No long er eligible based on patient's age to complete this topic IPV Vaccines Aged Out No longer eligi ble based on patient's age to complete this topic Meningococcal Vaccine Aged Out No saira doreen eligible based on patient's age to complete this topic RSV under 20 months Aged Out No longe r eligible based on patient's age to complete this topic Rotavirus Vaccines Aged Out No longer eligible based on patient's age to complete this topic Procedures Procedure Name Priority Date/Time Associated Diagnosis Comments XR WRIST RT W SCAPHOID Routine 04/10/2024 2:52 PM EST LIPID PANEL, STANDARD Routine 12/04/2023 7:48 AM EDT HEPATITIS C AB W/REFL TO HCV RNA, QN, PCR Routine 07/23/2022 8:31 AM EDT Essential hypertension HIV 1/2 ANTIGEN/ANTIBODY, FOURTH GENERATION W/RFL Routine 07/23/2022 8:31 AM EDT Essential hypertension HM COLONOSCOPY Routine 01/29/2021 from Last 3 Months or Most Recently Relevant to Health Maintenance Results * XR WRIST RT W SCAPHOID (04/10/2024 2:52 PM EST) Anatomical Region Laterality Modality Abdomen Radiographic Natacha ging 04/10/2024 2:52 PM EST Narrative 04/10/2024 3:18 PM EST ? [facility] ?[address] ?[place], [place] [address] ?XRay Report ? Signed ? Patient: Arnaldo Hutson ?MR#: M ?? [id number] ? : 1970 ?Acct:[id number] ? Age/Sex: 53 / M ?ADM Date: 04/10/24 ? Loc: HO.WC ? Attending Dr: Lisa Wellington PA-C ? Ordering Physician: Shanae May ?? Date of Service: 04/10/24 ?? Procedure(s): XR wrist RT w scaphoid ?? Accession Number(s): [id number] ? cc: Jonel Medellin MD; Shanae May ? EXAMINATION: ??XR WRIST NAVICULAR RIGHT ? HISTORY: CONTUSION RT WRIST ? COMPARISON: There are no prior studies available for comparison. ? FINDINGS: ? Four views of the right wrist including a scaphoid view are submitted. ? Osseous mineralization is normal. ??There is no fracture or dislocation. ?? The joint spaces are preserved. ??The soft tissues are unremarkable. ? XR/XR wrist RT w scaphoid ?? IMPRESSION: ? Unremarkable examination of the right wrist. ? Electronically signed by: ??Juan Vigil MD ??04/10/2024 03:15 PM EST ?? RP ? Dictated By: ?Juan Vigil MD ? Signed By: ?<Electronically signed by Juan Vigil MD in OV> ?04/10/24 1515 ? DD/ 1452 ? TD/TT: 04/10/24 1509 ? Tiltrotor Crew Chief: ? Procedure Note Devaughn Liang - 04/10/[address] [address] XRay Report Signed Patient: Arnaldo HutsonMR#: M [id number] : 1970Acct:[id number] Age/Sex: 53 / MADM Date: 04/10/24 Loc: HO.WC Attending Dr: Lisa Wellington PA-C Ordering Physician: Shanae May Date of Service: 04/10/24 Procedure(s): XR wrist RT w scaphoid Accession Number(s): [id number] cc: Jonel Medellin MD; Shanae May EXAMINATION: XR WRIST NAVICULAR RIGHT HISTORY: CONTUSION RT WRIST COMPARISON: There are no prior studies available for comparison. FINDINGS: Four views of the right wrist including a scaphoid view are submitted. Osseous mineralization is normal. There is no fracture or dislocation. The joint spaces are preserved. The soft tissues are unremarkable. XR/XR wrist RT w scaphoid IMPRESSION: Unremarkable examination of the right wrist. Electronically signed by: Juan Vigil MD 04/10/2024 03:15 PM [facility] Dictated By: Juan Vigil MD Signed By: <Electronically signed by Juan Vigil MD in OV> 04/10/24 1515 DD/ 1452 TD/TT: 04/10/24 1509 Tiltrotor Crew Chief: [facility] External Provider IMG XR PROCEDURES Final Result * Lipid Panel, Standard (12/04/2023 7:48 AM EDT) Triglycerides 113 <150 mg/dL [facility] Comment:Desirable Triglyceri de: less than 150 mg/dLBorderline High Triglyceride 150-199 mg/dLHigh Triglyceride: 200-499 mg/dLVery High Triglyceride: greater than or equal to 5OO mg/dL Cholesterol 137 <200 mg/dL [facility] Comment:Desirable Cholestero l: less than 200 mg/dLBorderline High Cholesterol: 200-239 mg/dLHigh Cholesterol: greater than 239 mg/dL LDL Cholesterol Calculated 74 <100 mg/dL [facility] Comment:Desirable LDL: less than 100 mg/dLNear Optimal/Above Optimal LDL: 110- 129 mg/dLBorderline High LDL: 130-159 mg/dLHigh LDL: 160-189 mg/dLVery High LDL: greater than or equal to 190 mg/dL HDL Cholesterol 41 >40 mg/dL [facility] Comment:Desirable HDL: great er than 40 mg/dL Note: This HDL assay may give artificially low results in patients with liver disease. 12/04/2023 7:48 AM EDT 12/04/2023 7:49 AM EDT Generic External Data Provider LAB BLOOD ORDERAB LES Final Result Performing Organization Address City/[facility]/ZIP Co de Phone Number [facility] [address] [place] [address] [phone] * Hepatitis C Antibody with Reflex to HCV, RNA, Quantitative, Real-Time PCR (07/23/2022 8:31 AM EDT) [facility] Hepatitis C Antibody NON-REACT AVERY NON-REACT AVERY [email or web address] [place] [facility] Index 0.04 <1.00 [email or web address] [place] [facility] Comment: HCV antibody was non-reactive. There is no laboratory evidence of HCV infection. In most cases, no further action is required. However, if recent HCV exposure is suspected, a test for HCV RNA (test code 24042) is suggested. For additional information please refer to http://education.[employer]/faq/HET94g2 (This link is being provided for informational/ educational purposes only.) Blood Venous blood specimen / Unknown 07/23/2022 8:31 AM EDT 07/23/2022 8:32 AM EDT Narrative [facility] - 07/28/2022 6:43 PM EDT FASTING:YES FASTING: YES Jonel Wright MD LAB BLOOD ORDERABLES Final Result Performing Organization Address City/[facility]/ZIP Co de Phone Number [facility] [[email or web address] [address], [facility] [place] [address] [email or web address] [place] [facility] [address] [place] [address] * HIV-1/2 Antigen and Antibodies, Fourth Generation, with Reflexes (07/23/2022 8:31 AM EDT) HIV Antigen/Antibody, 4th Generation NON-REAC TIVE NON-REAC TIVE [email or web address] [place] [facility] Comment: HIV-1 antigen and HIV-1/HIV-2 antibodies were not detected. There is no laboratory evidence of HIV infection. PLEASE NOTE: This information has been disclosed to you from records whose confidentiality may be protected by state law. ??If your state requires such protection, then the state law prohibits you from making any further disclosure of the information without the specific written consent of the person to whom it pertains, or as otherwise permitted by law. A general authorization for the release of medical or other information is NOT sufficient for this purpose. ?? For additional information please refer to http://education.[employer]/faq/BSR232 (This link is being provided for informational/ educational purposes only.) The performance of this assay has not been clinically validated in patients less than 2 years old. Blood Venous blood specimen / Unknown 07/23/2022 8:31 AM EDT 07/23/2022 8:32 AM EDT Narrative [facility] - 07/28/2022 6:43 PM EDT FASTING:YES FASTING: YES Jonel Wright MD LAB BLOOD ORDERABLES Final Result [facility] [address], [place] [address] [email or web address] [place] [facility] [address] [place] [address] * Colonoscopy (01/29/2021) Colonoscopy Normal Normal 01/29/2021 Rhoda Arredondo - 01/29/2021 11:01 AM EST Recommended 10 year follow up ( see scanned report )[facility] Historical Provider HEALTH MAINTENANCE Edited Result - Final from Last 3 Months or Most Recently Relevant to Health Maintenance Insurance , [address] [place] [address] [facility] Care Teams Commercial Attache Relationship Specialty Start Date End Date Jonel Mcclure MD [address] [place] [address] PCP - General Internal Medicine 03/21/19
--- OUTSIDE RECORDS SUMMARY | 2024-04-15 07:31 | XMS_ITS | Encounter Summary ---
Author Organization [employer] Address [address] [place] [address] [address] [place] [address] Care Team Providers Care Polytechnic Registrar Name Role Phone Jonel Mcclure MD Primary Care Provide r Encounter Details Date Type Department Care Team (Late st Contact Info) Description 07/08/2022 Abstract [facility] [address] [place] [phone] Jonel Mcclure MD [address] [place] [id number] Social History Tobacco Use Types Packs/Day Years Used Date Smoking Tobacco: Never Smokeless Tobacco: Never Depression Answer Date Recorded Patient Health Questionnaire-9 Score 0 04/14/2022 Depression Answer Date Recorded Patient Health Questionnaire-2 [...] suspected to have Coronavirus/COVID-19? No / Unsure 07/09/2022 8:52 AM EDT documented as of this encounter Plan of Treatment Upcoming Encounters Date Type Department Care Team (Late st Contact Info) Description 05/04/2024 2:00 PM EST Office Visit [facility] [address] [place] [address] Jonel Mcclure MD [address] [place] [address] documented as of this encounter Procedures Procedure Name Priority Date/Time Associated Diagnosis Comments COLONOSCOPY Routine 01/29/2021 documented in this encounter Results * Colonoscopy (01/29/2021) Colonoscopy Normal Normal 01/29/2021 Narrative Rhoda Garsia - 01/29/2021 11:01 AM EST Recommended 10 year follow up ( see scanned report )[facility] Historical Provider HEALTH MAINTENANCE Edited Result - Final documented in this encounter Visit Diagnoses Not on filedocumented in this encounter Additional Health Concerns Assessment Noted Time PHQ-9 Depression Total Score: 0 04/14/19 23 2:02 PM EST documented as of this encounter Care Teams Polytechnic Registrar Relationship Specialty Start Date End Date Jonel Mcclure MD [address] [place] [address] PCP - General Internal Medicine 03/21/19 documented as of this encounter
[2024-04-15 08:52] LABS: Anion Gap 12 (12-20); Blood Urea Nitrogen 15 mg/dL (9-16); Calcium 9.3 mg/dL (8.4-10.2); Carbon Dioxide 26 mmol/L (22-29); Chloride 108 mmol/L (96-108); Estimated Glomerular Filt Rate > 60; Glucose Random 105 mg/dL (60-115); Potassium 4.5 mmol/L (3.3-5.1); Sodium 141 mmol/L (135-145)
== END 2024-04-15 07:29 | disposition home or self-care (01) ==
LOC: HO.LAB 07:28
PROVIDERS: PCP Internal Medicine; Visit Provider Internal Medicine
DX: I10 Essential (primary) hypertension (principal)
CPT/HCPCS: 36415; 80048

== ENCOUNTER 2024-05-16 14:29 | Outpatient (AMB) | payer MEDICAID, SELFPAY ==
--- NOTE | 2024-05-16 14:35 | MHC.OFFVIS ---
Vital Signs 05/16/24 14:36 Height 5 ft 11 in Weight 190 lb BMI 26.5 BP 112/70 Blood Pressure Location Rt brachial Position Sitting Pulse 76 Pulse Source Pulse Oximeter Pulse Oximetry (%) 97 Oxygen Delivery Method Room Air Intake Visit Reasons: Follow up Intake Note: Patient presents follow up DAWNA. Compliance in chart Rn Documentation Specialist Required: No Accompanied by: Self / Same As Patient Allergies seafood Allergy (Severe, Verified 05/16/24 14:36) respiratory [id number]-ALR-BxT Reductase Inhibitor Allergy (Intermediate, Verified 05/16/24 14:36) Muscle Pain HPI Comments Details: Chief Complaint Follow-up evaluation for sleep apnea and CPAP compliance. History of Present Illness The patient is a 53-year-old male presenting with a follow-up for obstructive sleep apnea. CPAP usage data between February 09, 2024, and May 08, 2024, indicates 100% overall usage with 67% of these days exceeding four hours. Average use during compliance stands at 4 hours 31 minutes with APAP settings of 5-20 cm H2O and EPR3. Average pressure is 6 cm H2O and leaks average 1.5 L/min. Residual AHI remains 1.8/hour. Patient reports improved sleep without daytime somnolence. Acknowledged occasional sleep interruption and removing CPAP during attempts to rest. Past insurance issues affecting supplies have improved. Advised adjustments to CPAP duration to achieve compliance targets. Sleep To making his own beer- Bedtime: Typically around 10:00 PM. - Morning Arousal: Usually between 6:00 and 6:30 AM. - Total Sleep Duration: Approximately 8 to 8.5 hours. - Bedtime Routines/Environment: Consumes late-night snacks, including cornflakes and chips, affecting sleep quality; advised against heavy snacking. - Coffee Consumption: Can drink coffee at night; advised on possible impact on sleep quality. - Arousals Frequency: Confirmed only occasional arousal without associated daytime fatigue. CPAP usage review: Does patient have sufficient PAP supplies? Yes Does patient clean PAP supplies on a regular basis? Has not been, as he receives supplies regularly. Does the patient use distilled water in their PAP machine water reservoir? Yes PAP compliance report reviewed. 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 Physical Exam Vital Signs: Last Vital Signs Pulse 76 05/16/24 14:36 BP 112/70 05/16/24 14:36 Pulse Ox 97 05/16/24 14:36 Oxygen Delivery Method Room Air 05/16/24 14:36 BMI result Body Mass Index 26.5 Const General: no acute distress Orientation/consciousness: patient oriented x3 Resp Effort & Inspection: normal respiratory effort and able to speak in complete sentences Neuro General: patient oriented x3 Psych Mental Status: mental status grossly normal Speech and movement: Clear speech present Attitude: cooperative Assessment & Plan Assessment & Plan (1) DAWNA (obstructive sleep apnea): Code(s): G47.33 - Obstructive sleep apnea (adult) (pediatric) Category: Medical Plan Discussion Notes I discussed with the patient the current compliance with CPAP therapy, emphasizing the importance of the usage exceeding four hours on more than 70% of nights to maintain insurance compliance for ongoing supplies and to ensure optimal therapeutic outcomes. I advised on proper cleaning routines for CPAP equipment and mentioned the potential effects of late-night snacks and coffee consumption on sleep quality. Encouraged increasing certain usage metrics and addressed past insurance issues that were impacting supply acquisition. Reinforced the importance of regular follow-up to monitor therapy efficacy and equipment standards. Patient was informed and verbally consented to the use of an ambient scribe for clinic note documentation during this visit. Plan Continue CPAP with focus on improving compliance above 70% of nights greater than four hours. Adhere to equipment cleaning protocols and use distilled water. Discourage late-night eating to enhance sleep quality. Ensure timely access to supplies post-insurance resolution. Maintain exercise regimen. Follow up in one year unless symptoms change. - Continue to use APAP 5-20 cmH2O with EPR3 nightly with a goal of greater than 4 hours nightly, as patient is experiencing good clinical effect from use. - Clean and change PAP supplies routinely, including filters, masks, tubing, and water reservoir. - Use distilled water in PAP water reservoir. Pt to follow-up in 12 months or sooner prn. Coding Level of Care Code Est Pt Level 3 (10831) Diagnoses DAWNA (obstructive sleep apnea) G47.33
[2024-05-16 14:36] VITALS: BP 112/70; PULSE 76; O2SAT 97; BMI 26.5
--- OUTSIDE RECORDS SUMMARY | 2024-05-16 17:46 | XMS_ITS | Encounter Summary ---
Author Organization [employer] Address [address] [facility] [address] [place] [address] Care Team Providers Care Building Economist Name Role Phone Jonel Mcclure MD Primary Care Provide r Reason for Visit * Reason Comments Med Change Request Encounter Details Date Type Department Care Team ([facility] st Contact Info) Description 05/04/2024 Refill [facility] [address] [place] [phone] Jonel Mcclure MD [address] [place], [place] [phone] Impaired glucose tolerance Social History Tobacco Use Types Packs/Day Years Used Date Smoking Tobacco: Never Passive Smoke Exposure: Never Smokeless Tobacco: Never Alcohol Use Standard [...] as of this encounter Plan of Treatment Not on file documented as of this encounter Visit Diagnoses Diagnosis Impaired glucose tolerance Impaired glucose tolerance test documented in this encounter Additional Health Concerns Assessment Noted Time PHQ-9 Depression Total Score: 0 12/28/19 24 2:30 PM EDT documented as of this encounter Care Teams Building Economist Relationship Specialty Start Date End Date Jonel Mcclure MD [address] [place] [phone] PCP - General Internal Medicine 03/21/19 documented as of this encounter
--- OUTSIDE RECORDS SUMMARY | 2024-05-16 17:46 | XMS_ITS | Encounter Summary ---
Author Organization [employer] Address [address] [place] [address] Care Team Providers Care Before School Babysitter Name Role Phone Jonel Mcclure MD Primary Care Provide r Encounter Details Date Type Department Care Team (Latest Contact Info) Description 05/04/2024 Travel Social History Tobacco Use Types Packs/Day Years [...] is your housing situation today? I have sofiaalayna bishop 12/28/[address] you [...] documented as of this encounter Care Teams Before School Babysitter Relationship Specialty Start Date End Date Jonel Mcclure MD [address] [place] [phone] PCP - General Internal Medicine 03/21/19 documented as of this encounter
--- OUTSIDE RECORDS SUMMARY | 2024-05-16 17:46 | XMS_ITS | Encounter Summary ---
Author Organization [employer] Address [address] [place] [address] [address] [place] [address] Care Team Providers Care Distillation Operator Helper Name Role Phone Jonel Mcclure MD Primary Care Provide r Encounter Details Date Type Department Care Team ([facility] st Contact Info) Description 03/19/2022 Orders Only [facility] [address] [place] [address] Peyton Ramirez MD [address] [place] [address] Social History Tobacco Use Types Packs/Day Years [...] on filedocumented in this encounter Care Teams Distillation Operator Helper Relationship Specialty Start Date End Date Jonel Mcclure MD [address] [place] [phone] PCP - General Internal Medicine 03/21/19 documented as of this encounter
--- OUTSIDE RECORDS SUMMARY | 2024-05-16 17:46 | XMS_ITS | Encounter Summary ---
Author Organization [employer] Address [address] [facility] [address] [place] [address] Care Team Providers Care Cartridge Loader Name Role Phone Jonel Mcclure MD Primary Care Provide r Encounter Details Date Type Department Care Team ([facility] st Contact Info) Description 06/17/2023 Orders Only [facility] [address] [place], [place] [phone] Jonel Mcclure MD [address] [place], [place] [phone] Social History Tobacco Use Types Packs/Day Years [...] on file documented as of this encounter Procedures Procedure Name Priority Date/Time Associated Diagnosis Comments BASIC METABOLIC PANEL Routine 01/08/2024 7:57 AM EDT LIPID PANEL, STANDARD Routine 12/04/2023 7:48 AM EDT BASIC METABOLIC PANEL Routine 12/04/2023 7:48 AM EDT documented in this encounter Results * (ABNORMAL) Basic Metabolic Panel (01/08/2024 7:57 AM EDT) Sodium 143 135 - 145 mmol/L [facility] Potassium 3.8 3.3 - 5.1 mmol/L [facility] Chloride 109(H) 96 - 108 mmol/L [facility] Carbon Dioxide 25 22 - 29 mmol/L [facility] Anion Gap 13 12 - 20 [facility] Urea Nitrogen (BUN) 12 9 - 16 mg/dL [facility] Creatinine, Serum 1.01 0.5 - 1.4 mg/dL [facility] Estimated Glomerular Filt Rate >60 [facility] Comment:NOTE: For -Am erican individuals, multiply the result by 1.210.Chronic Kidney Disease: Estimated GFR < 60 mL/min/1.10x9Twifgv Kidney Disease: Estimated GFR < 15 mL/min/1.73m2 Glucose 106 60 - 115 mg/dL [facility] Calcium 8.9 8.4 - 10.2 mg/dL [facility] 01/08/2024 7:57 AM EDT 01/08/2024 7:57 AM EDT Generic External Data Provider LAB BLOOD ORDERAB LES Final Result Performing Organization Address [facility]/ZIP Co de Phone Number [facility] [address] [place] [phone] * Lipid Panel, Standard (12/04/2023 7:48 AM EDT) Triglycerides 113 <150 mg/dL [facility] Comment:Desirable Triglyceri de: less than 150 mg/dLBorderline High Triglyceride 150-199 mg/dLHigh Triglyceride: 200-499 mg/dLVery High Triglyceride: greater than or equal to 5OO mg/dL Cholesterol 137 <200 mg/dL [facility] Comment:Desirable Cholestero l: less than 200 mg/dLBorderline High Cholesterol: 200-239 mg/dLHigh Cholesterol: greater than 239 mg/dL LDL Cholesterol Calculated 74 <100 mg/dL [facility] Comment:Desirable LDL: less than 100 mg/dLNear Optimal/Above Optimal LDL: 110- 129 mg/dLBorderline High LDL: 130-159 mg/dLHigh LDL: 160-189 mg/dLVery High LDL: greater than or equal to 190 mg/dL HDL Cholesterol 41 >40 mg/dL [facility] Comment:Desirable HDL: great er than 40 mg/dL Note: This HDL assay may give artificially low results in patients with liver disease. 12/04/2023 7:48 AM EDT 12/04/2023 7:49 AM EDT us Generic External Data Provider LAB BLOOD ORDERAB LES Final Result Performing Organization Address City/[facility]/ZIP Co de Phone Number [facility] [address] [place] [phone] * (ABNORMAL) Basic Metabolic Panel (12/04/2023 7:48 AM EDT) Sodium 141 135 - 145 mmol/L [facility] Potassium 3.0(L) 3.3 - 5.1 mmol/L [facility] Chloride 101 96 - 108 mmol/L [facility] Carbon Dioxide 32(H) 22 - 29 mmol/L [facility] Anion Gap 11(L) 12 - 20 [facility] Urea Nitrogen (BUN) 11 9 - 16 mg/dL [facility] Creatinine, Serum 1.01 0.5 - 1.4 mg/dL [facility] Estimated Glomerular Filt Rate >60 [facility] Comment:NOTE: For -Am erican individuals, multiply the result by 1.210.Chronic Kidney Disease: Estimated GFR < 60 mL/min/1.61i2Egirql Kidney Disease: Estimated GFR < 15 mL/min/1.73m2 Glucose 125(H) 60 - 115 mg/dL [facility] Calcium 10.0 8.4 - 10.2 mg/dL [facility] 12/04/2023 7:48 AM EDT 12/04/2023 7:49 AM EDT us Generic External Data Provider LAB BLOOD ORDERAB LES Final Result [facility] [address] [place] [phone] [phone] documented in this encounter Visit Diagnoses Not on filedocumented in this encounter Additional Health Concerns Assessment Noted Time PHQ-9 Depression Total Score: 0 04/14/19 23 2:02 PM EST documented as of this encounter Care Teams Cartridge Loader Relationship Specialty Start Date End Date Jonel Mcclure MD [address] [place] [phone] PCP - General Internal Medicine 03/21/19 documented as of this encounter
--- OUTSIDE RECORDS SUMMARY | 2024-05-16 17:46 | XMS_ITS | Clinical Summary ---
Author Organization [employer] Address [address] [place] [address] 7[address] [place] [address] Care Team Providers Care Certified Alcohol And Drug Counselor Name Role Phone Jonel Mcclure MD Primary Care Provide r Allergies Active Allergy Reactions Criticality Noted Date Comments Shellfish Allergy 02/12/2022 Medications clobetasol (Temovate) 0.05 % ointmentIndicat ions:Eczema of both hands Apply to affected area twice a day 30 g 04/14/19 23 Active Blood Glucose Monitoring Suppl (FreeStyle Lite) w/Device kitIndications: Prediabetes 1 application 1 (one) time per week. 1 kit 07/31/19 23 Active TRUEplus Lancets 33G misc USE DIRECTED TO TEST BLOOD SUGAR ONCE A WEEK 100 each 1 11/11/19 24 Active Repatha SureClick 140 MG/ML injection Inject 140 mg under the skin every 14 (fourteen) days. 11/19/19 24 Active lisinopril 5 MG tablet Take 1 tablet by mouth Once per day. 03/28/19 25 Active glucose blood (FREESTYLE LITE) test stripIndication s:Impaired glucose tolerance Test once daily 50 strip 3 05/04/19 25 Active metFORMIN XR (Glucophage-XR) 500 MG 24 hr tabletIndicatio ns:Impaired glucose tolerance TAKE 1 TABLET BY MOUTH EVERY EVENING DO NOT BREAK, CRUSH, DISSOLVE OR CHEW 90 tablet 3 05/04/19 25 Active naproxen (Naprosyn) 500 MG tablet Take 1 tablet by mouth in the morning and 1 tablet in the evening. 09/30/19 22 2024 Discontinued(T herapy completed) chlorthalidone (Hygroton) 25 MG tabletIndicatio ns:Essential hypertension TAKE 1 TABLET BY MOUTH EVERY MORNING 90 tablet 3 04/14/19 24 2024 Discontinued(T herapy completed) metFORMIN XR (Glucophage-XR) 500 MG 24 hr tabletIndicatio ns:Impaired glucose tolerance TAKE 1 TABLET BY MOUTH EVERY EVENING DO NOT BREAK, CRUSH, DISSOLVE OR CHEW 90 tablet 3 04/29/19 24 2024 Discontinued(R eorder (will not trigger notification to Pharmacy)) FREESTYLE LITE test strip USE DIRECTED TO TEST BLOOD SUGAR ONCE A WEEK 50 strip 3 11/11/19 24 2024 Discontinued(R eorder (will not trigger notification to Pharmacy)) metFORMIN XR (Glucophage-XR) 500 MG 24 hr tabletIndicatio ns:Impaired glucose tolerance Do not crush, chew, or split. 90 tablet 3 05/04/192024 Discontinued Active Problems Problem Noted Date Diagnosed Date [...] EDT): Uses Clobetasol BID PRN Seen by Manager Treasury, Dr. Christopher 07/27/2023 Assessment & Plan (03/18/2023 2:19 PM EST): Uses Clobetasol BID PRN Would like to see a dominatrix, referral placed Assessment & Plan (04/14/2022 4:43 PM EST): Started on Clobetasol BID [facility] care 04/12/2022 Assessment & Plan (05/04/2024 2:20 PM EST): PSA: Normal : 01/08/2024 Colonoscopy: 01/29/2022 showed hemorrhoids Vaccines: He states he had them all in [place] Assessment & Plan (12/28/2023 2:07 PM EDT): PSA: Normal : 07/28/2022 Colonoscopy: 01/29/2022 showed hemorrhoids Vaccines: He states he had them all in [place] Assessment & Plan (04/12/2022 10:49 AM EST): [facility]: Normal : 04/18/2019 Colonoscopy: 01/29/2022 showed hemorrhoids Vaccines: He states he had them all in [place] Essential hypertension 02/12/2022 Assessment & Plan (05/04/2024 2:19 PM EST): Patient Here for a follow up regarding his Hypertension currently controlled on a regimen of: Lisinopril 5 mg po daily ( Chlorthalidone stopped by Cardiology due to low K ) Given adequate blood pressure control will continue with current medical regimen. Most recent electrolytes, Bun and Creatinine done on: Lab Results Component Value Date NA 141 04/15/2024 NA 143 01/08/2024 K 4.5 04/15/2024 K 3.8 01/08/2024 CL 108 04/15/2024 CL 109 (H) 01/08/2024 BUN 15 04/15/2024 BUN 12 01/08/2024 CREATININE 0.96 04/15/2024 CREATININE 1.01 01/08/2024 Plan: Continue current regimen patient advised to adhere to a low sodium diet, encouraged about medication compliance, counseled about weight loss. Assessment & Plan (12/28/2023 2:00 PM EDT): [...] Impaired glucose tolerance 02/12/2022 Assessment & Plan (05/04/2024 2:21 PM EST): Patient here for a f/u Pt with persistent elevated FBS Repeat 01/08/2024 down to 106 Hgb A1c 5.6 we had recommended lifestyle changes, diet and exercise first he is on Metformin 500 mg po q PM. Assessment & Plan (12/28/2023 2:02 PM EDT): [...] AM EST): Pt initially evaluated at our [facility] , after pt c/o new onset of LBP after a twisting injury. He also reported a previous Hx of Lumbar radiculopathy Pt was referred to PT, finished, uses muscle relaxants prn Goes to our Acupuncture clinic regularly Mixed hyperlipidemia 02/12/2022 Assessment & Plan (05/04/2024 2:25 PM EST): Most recent lipid profile from: Lab Results Component Value Date TRIG 113 12/04/2023 TRIG 120 06/12/2023 CHOL 137 12/04/2023 CHOL 245 (H) 06/12/2023 LDLCHOLCAL 74 12/04/2023 LDLCHOLCAL 178 (H) 06/12/2023 HDL 41 12/04/2023 HDL 43 06/12/2023 12/04/2023 shows an LDL of: 74 He was on a regimen of Atorvastatin 20 mg po at bedtime but he stopped due to c/o muscle pain and headaches, states symptoms went away after he stopped it. . Pt seen by Grain Merchandising Manager who started him on Repatha advised to try to adhere to a low cholesterol diet, counseled and educated about diet and exercise, Patient encouraged to come up with a personal goal for weight loss. 3 month f/u Assessment & Plan (12/28/2023 2:10 PM EDT): Most recent lipid profile from: 12/04/2023 shows an LDL of: 74 He was on a regimen of Atorvastatin 20 mg po at bedtime but he stopped due to c/o muscle pain and headaches, states symptoms went away after he stopped it. . Pt seen by Grain Merchandising Manager who started him on Repatha advised to [...] Encounters Date Type Department Care Team Description 05/04/2024 2:00 PM EST Office Visit [facility] MEDICINE [address] [place] [phone] Jonel Mcclure MD Essential hypertension (Primary Dx); Mixed hyperlipidemia; Preventative health care; Impaired glucose tolerance 05/04/[address] [facility] [address] [place] [phone] Jonel Mcclure MD Impaired glucose tolerance 05/04/2024 Travel 04/27/2024 Travel 04/21/2024 Patient Outreach [facility] [address] [place] [address] Jonel Mcclure MD Pre-visit Planning (SDOH Screening negative and Tobacco screening negative) 04/19/[address] [facility]INE [address] [place] [phone] Jonel Mcclure MD Chart Prep 04/10/2024 Orders Only [facility] External Provider, [facility] from Last 3 Months Immunizations Name Administration Dates Next Due INFLUENZA INJECTABLE QUADRIV ALANT CCIIV4 MDCK Multi-dose vial 01/31/2019 Influenza Injectable Quadriv alant Preservative Free IIV4 MDCK 12/01/2022,01/23/2021,01/02/2020 Influenza injectable quadriv alent preservative free 01/07/2022 Influenza, seasonal, injecta ble, preservative free 11/26/2023 Pfizer Covid-19 Vaccine 12+ 11/26/2023, Pneumococcal Conjugate PCV 20 05/04/2024 Tdap 10/27/2021 Zoster, Recombinant 10/27/2021,07/29/2021 Social History [...] Sign Reading Time Taken Comments Blood Pressure 136/83 05/04/2024 1:56 PM EST Pulse 65 05/04/2024 1:56 PM EST Temperature 36.1 ??C (96.9 ??F) 05/04/2024 1:56 PM ES T Respiratory Rate 20 05/04/2024 1:56 PM EST Oxygen Saturation 98% 05/04/2024 1:56 PM EST Inhaled Oxygen Concentration - - Weight 85.8 kg (189 lb 3.2 oz) 05/04/2024 1:56 P M EST Height 180.3 cm (5' 11 ) 05/04/2024 1:56 PM EST Body Mass Index 26.39 05/04/2024 1:56 PM EST Plan of Treatment Health Maintenance Due Date Last Done Comments CT Colonography 1970 FIT DNA/Cologuard 1970 FIT 1970 FOBT 1970 Sigmoidoscopy 1970 Hepatitis B Vaccines (1 of 3 - 19+ 3-dose series) 1989 Alcohol/Substance Use Screening 12/27/2024 12/28/2023 Depression Screening 12/27/2024 12/28/2023, 12/28/19 SDOH Screening 04/21/2025 04/21/2024 Tobacco Screening 05/04/2025 05/04/2024 Lipid Panel 12/03/2028 12/04/2023, 04/0 08/2023, 07/23/2022, [...] Completed 11/26/2023, , 01/07/2022, Additional history exists Pneumococcal Vaccine: 50+ Years Completed 05/04/2024 HIB Vaccines Aged Out No longer eligi [...] Associated Diagnosis Comments BASIC METABOLIC PANEL Routine 04/15/2024 8:12 AM EST Essential hypertension XR WRIST RT W SCAPHOID Routine 04/10/2024 [...] Recently Relevant to Health Maintenance Results * Basic Metabolic Panel (04/15/2024 8:12 AM EST) Sodium 141 135 - 145 mmol/L [facility] Potassium 4.5 3.3 - 5.1 mmol/L [facility] Chloride 108 96 - 108 mmol/L [facility] Carbon Dioxide 26 22 - 29 mmol/L [facility] Anion Gap 12 12 - 20 [facility] Urea Nitrogen (BUN) 15 9 - 16 mg/dL [facility] Creatinine, Serum 0.96 0.5 - 1.4 mg/dL [facility] Estimated Glomerular Filt Rate >60 [facility] Comment:Chronic Kidney Disea se: Estimated GFR < 60 mL/min/1.99l9Wtcnek Kidney Disease: Estimated GFR < 15 mL/min/1.73m2 Glucose 105 60 - 115 mg/dL [facility] Calcium 9.3 8.4 - 10.2 mg/dL [facility] Blood Venous blood specimen / Unknown 04/15/2024 8:12 AM EST 04/15/2024 8:12 AM EST us Jonel Wright MD LAB BLOOD ORDERABLES Final Result [facility] [address] [place] [address] [phone] * XR WRIST RT W SCAPHOID (04/10/2024 2:52 PM EST) Anatomical Region Laterality Modality Abdomen Radiographic Natacha ging 04/10/2024 2:52 PM EST Narrative 04/10/2024 3:18 PM EST ? [facility] ?[address] ?[place] [address] ?XRay Report ? Signed ? Patient: Arnaldo Hutson ?MR#: [id number] ?? [id number] ? : 1970 ?Acct:[id number] ? Age/Sex: 53 / M ?ADM Date: 02/03/25 ? Loc: HO.WC ? Attending Dr: Lisa Wellington PA-C ? Ordering Physician: Shanae May ?? Date of Service: 04/10/24 ?? Procedure(s): XR wrist RT w scaphoid ?? Accession Number(s): [id number] ? cc: Jonel Medellin MD; Shanae May [...] ??Juan Vigil MD ??04/10/2024 03:15 PM EST ? Dictated By: ?Juan Vigil MD ? Signed By: ?<Electronically signed by Juan Vigil MD in OV> ?04/10/24 1515 ? DD/ 1452 ? TD/TT: 04/10/24 1509 ? Regulatory Compliance Specialist: ? Procedure Note Keerthiluz elena, Image - 04/10/2024 [place] [id number] XRay Report Signed Patient: Arnaldo HutsonMR#: M [id number] : 1970Acct:[id number] Age/Sex: 53 / MADM Date: 04/10/24 Loc: . Attending Dr: Lisa Wellington PA-C Ordering Physician: Shanae May Date of Service: 04/10/24 Procedure(s): XR wrist RT w scaphoid Accession Number(s): [id number] cc: Jonel Medellin MD; Shanae May EXAMINATION: [...] by: Juan Vigil MD 04/10/2024 03:15 PM [facility] Dictated By: Juan Vigil MD Signed By: <Electronically signed by Juan Vigil MD in OV> 04/10/24 1515 DD/ 1452 TD/TT: 04/10/24 1509 Regulatory Compliance Specialist: [facility] External Provider IMG XR PROCEDURES Final Result * Lipid Panel, Standard (12/04/2023 7:48 AM EDT) Triglycerides 113 <150 mg/dL [facility] Comment:Desirable Triglyceri de: less than 150 mg/dLBorderline High Triglyceride 150-199 mg/dLHigh Triglyceride: 200-499 mg/dLVery High Triglyceride: greater than or equal to 5OO mg/dL Cholesterol 137 <200 mg/dL [facility] Comment:Desirable Cholestero l: less than 200 mg/dLBorderline High Cholesterol: 200-239 mg/dLHigh Cholesterol: greater than 239 mg/dL LDL Cholesterol Calculated 74 <100 mg/dL [facility] Comment:Desirable LDL: less than 100 mg/dLNear Optimal/Above Optimal LDL: 110- 129 mg/dLBorderline High LDL: 130-159 mg/dLHigh LDL: 160-189 mg/dLVery High LDL: greater than or equal to 190 mg/dL HDL Cholesterol 41 >40 mg/dL [facility] Comment:Desirable HDL: great er than 40 mg/dL Note: This HDL assay may give artificially low results in patients with liver disease. 12/04/2023 7:48 AM EDT 12/04/2023 7:49 AM EDT Generic External Data Provider LAB BLOOD ORDERAB LES Final Result [facility] [address] [place] [address] [phone] * Hepatitis C Antibody with Reflex to HCV, RNA, Quantitative, Real-Time PCR (07/23/2022 8:31 AM EDT) Hepatitis C Antibody NON-REACT AVERY NON-REACT AVERY [facility] [place] [facility] Index 0.04 <1.00 [facility] [place] [facility] Comment: HCV antibody was non-reactive. There is no laboratory evidence of HCV infection. In most cases, no further action is required. However, if recent HCV exposure is suspected, a test for HCV RNA (test code 19385) is suggested. For additional information please refer to http://[employer]/faq/WIL19s9 (This link is being provided for informational/ educational purposes only.) Blood Venous blood specimen / Unknown 07/23/2022 8:31 AM EDT 07/23/2022 8:32 AM EDT Narrative [facility] - 07/28/2022 6:43 PM EDT FASTING:YES FASTING: YES us Jonel Wright MD LAB BLOOD ORDERABLES Final Result [facility] [address], [place] [address] [facility] [employer] [address] [place] [address] * HIV-1/2 Antigen and Antibodies, Fourth Generation, with Reflexes (07/23/2022 8:31 AM EDT) Pathologist [facility] HIV Antigen/Antibody, 4th Generation NON-REAC TIVE NON-REAC TIVE [facility] [place] [facility] Comment: HIV-1 antigen and HIV-1/HIV-2 antibodies [...] ?? For additional information please refer to http://[employer].Corceuticals/faq/VBQ797 (This link is being provided for informational/ educational purposes only.) The performance of this assay has not been clinically validated in patients less than 2 years old. Blood Venous blood specimen / Unknown 07/23/2022 8:31 AM EDT 07/23/2022 8:32 AM EDT Narrative [facility] - 07/28/2022 6:43 PM EDT FASTING:YES FASTING: YES us Jonel Wright MD LAB BLOOD ORDERABLES Final Result [facility] [address] [facility], [facility], [place] [address] [facility] [place] [facility] [address] [place] [address] * Colonoscopy (01/29/2021) Colonoscopy Normal Normal 01/29/2021 Narrative Rhoda Garsia - 01/29/2021 11:01 AM EST Recommended 10 year follow up ( see scanned report )[facility] us Historical Provider HEALTH MAINTENANCE Edited Result - Final from Last 3 Months or Most Recently Relevant to Health Maintenance Insurance [facility] [employer] Member Subscriber Plan / Payer (Ef fective 2023-Present) Name:Arnaldo Hutson Relation to Subscriber:Self Name:Arnaldo Hutson Payer ID:[id number] Group ID:Not on file Type:Not on file Address: [address] [place], [place] Care Teams Certified Alcohol And Drug Counselor Relationship Specialty Start Date End Date Jonel Mcclure MD [address] [place] [phone] PCP - General Internal Medicine 03/21/19
--- OUTSIDE RECORDS SUMMARY | 2024-05-16 17:46 | XMS_ITS | Encounter Summary ---
Author Organization [employer] Address [address] [facility] 7t [place] [address] Care Team Providers Care Glue Drier Operator Name Role Phone Jonel Mcclure MD Primary Care Provide r Reason for Visit * Reason Comments Hypertension Follow-up Pt expressed concern s over his left thumb nail that has been coming off in pieces, noticed dry blood sometime; stated this has been going on for about 1 mo Encounter Details Date Type Department Care Team (Late st Contact Info) Description 05/04/2024 2:00 PM EST Office Visit [facility] MEDICINE [address] [place] [address] Jonel Mcclure MD [address] [place], [place] [phone] Essential hypertension (Primary Dx); Mixed hyperlipidemia; Preventative health care; Impaired glucose tolerance Social History Tobacco Use [...] your housing situation today? I have sofia sing 12/28/[address] you li [...] AM EDT documented as of this encounter Last Filed Vital Signs Vital Sign Reading [...] Mass Index 26.39 05/04/2024 1:56 PM EST documented in this encounter Progress Notes * Jonel Wright MD - 05/04/2024 2:00 PM EST SUBJECTIVE Arnaldo Christy is a 53 y.o. male who presents for Hypertension and Follow-up (Pt expressed concerns over his left thumb nail that has been coming off in pieces, noticed dry blood sometime; stated this has been going on for about 1 mo). Hypertension This is a chronic problem. Pertinent negatives include no chest pain, headaches or shortness of breath. Review of Systems Constitutional: Negative for fever. HENT: Negative for sore throat. Respiratory: Negative for cough and shortness of breath. Cardiovascular: Negative for chest pain. Gastrointestinal: Negative for abdominal pain. Neurological: Negative for headaches. Allergies Allergen Reactions Seafood [Shellfish Allergy] OBJECTIVE Vitals: 05/04/24 1356 BP: 136/83 BP Location: Left arm Patient Position: Sitting BP Cuff Size: Adult Pulse: 65 Resp: 20 Temp: 96.9 ??F (36.1 ??C) TempSrc: Temporal SpO2: 98% Weight: 189 lb 3.2 oz (85.8 kg) Height: 5' 11 (1.803 m) Physical Exam Vitals reviewed. Constitutional: Appearance: Normal appearance. HENT: Head: Normocephalic and atraumatic. Right Ear: External ear normal. Left Ear: External ear normal. Nose: Nose normal. Mouth/Throat: Mouth: Mucous membranes are moist. Eyes: Conjunctiva/sclera: Conjunctivae normal. Cardiovascular: Rate and Rhythm: Normal rate and regular rhythm. Pulmonary: Effort: Pulmonary effort is normal. Breath sounds: Normal breath sounds. Skin: General: Skin is warm. Neurological: Mental Status: He is alert. Mental status is at baseline. Assessment/Plan Problem List Items Addressed This Visit Essential hypertension - Primary Patient Here for a follow up regarding [...] about medication compliance, counseled about weight loss. Mixed hyperlipidemia Most recent lipid profile from: Lab Results [...] he stopped it. . Pt seen by Vendor Management Consultant who started him on Repatha advised to try to adhere to a low cholesterol diet, counseled and educated about diet and exercise,Patient encouraged to come up with a personal goal for weight loss. 3 month f/u Relevant Orders Lipid Panel, Standard Preventative health care PSA: Normal : 01/08/2024 Colonoscopy: 01/29/2022 showed hemorrhoids Vaccines: He states he had them all in [place] Impaired glucose tolerance Patient here for a f/u Pt with persistent elevated FBS Repeat 01/08/2024 down to 106 Hgb A1c 5.6 we had recommended lifestyle changes, diet and exercise first he is on Metformin 500 mg po q PM. Relevant Medications glucose blood (FREESTYLE LITE) test strip metFORMIN XR (Glucophage-XR) 500 MG 24 hr tablet documented in this encounter Miscellaneous Notes * Assessment & Plan Note - Jonel Wright MD - 05/04/2024 2:21 PM EST Associated Problem(s): Impaired glucose tolerance Patient here for a f/u Pt with persistent elevated FBS Repeat 01/08/2024 down to 106 Hgb A1c 5.6 we had recommended lifestyle changes, diet and exercise first he is on Metformin 500 mg po q PM. * Assessment & Plan Note - Jonel Wright MD - 05/04/2024 2:20 PM EST Associated Problem(s): Preventative health care PSA: Normal : 01/08/2024 Colonoscopy: 01/29/2022 showed hemorrhoids Vaccines: He states he had them all in [place] * Assessment & Plan Note - Jonel Wright MD - 05/04/2024 2:20 PM EST Associated Problem(s): Mixed hyperlipidemia Most recent lipid profile from: Lab Results [...] he stopped it. . Pt seen by Vendor Management Consultant who started him on Repatha advised to try to adhere to a low cholesterol diet, counseled and educated about diet and exercise,Patient encouraged to come up with a personal goal for weight loss. 3 month f/u * Assessment & Plan Note - Jonel Wright MD - 05/04/2024 2:19 PM EST Associated Problem(s): Essential hypertension Patient Here for a follow up regarding [...] about medication compliance, counseled about weight loss. * Addendum Note - Talia Bejarano RN - 05/04/2024 2:00 PM ESTAddended by: TALIA BEJARANO on: 05/04/2024 02:36 PM Modules accepted: Orders documented in this encounter Plan of Treatment Scheduled Orders Name Type Priority Associated Diagnoses Orde r Schedule Lipid Panel, Standard Lab Routine Mixed hyperlipidemia Ordered: 05/04/2024 documented as of this encounter Visit Diagnoses Diagnosis Essential hypertension- Primary Unspecified essential hypertension Mixed hyperlipidemia Preventative health care Routine general medical examination at a health care facility Impaired glucose tolerance Impaired glucose tolerance test documented in this encounter Additional Health Concerns Assessment Noted Time PHQ-9 Depression Total Score: 0 12/28/19 24 2:30 PM EDT documented as of this encounter Care Teams Glue Drier Operator Relationship Specialty Start Date End Date Jonel Mcclure MD [address] [place] [address] PCP - General Internal Medicine 03/21/19 documented as of this encounter
--- OUTSIDE RECORDS SUMMARY | 2024-05-16 17:47 | XMS_ITS | Encounter Summary ---
Author Organization [employer] Address [address] [place] [address] Care Team Providers Care Marine Insurance Claim Examiner Name Role Phone Jonel Mcclure MD Primary Care Provide r Encounter Details Date Type Department Care Team (Latest Contact Info) Description 04/27/2024 Travel Social History Tobacco Use Types Packs/Day [...] documented as of this encounter Care Teams Marine Insurance Claim Examiner Relationship Specialty Start Date End Date Jonel Mcclure MD [address] [place] [address] PCP - General Internal Medicine 03/21/19 documented as of this encounter
--- OUTSIDE RECORDS SUMMARY | 2024-05-16 17:47 | XMS_ITS | Encounter Summary ---
Author Organization [employer] Address [address] [place] [address] [address] [place] [address] Care Team Providers Care Network Operations Technician Name Role Phone Jonel Mcclure MD Primary Care Provide r Encounter Details Date Type Department Care Team ([facility] st Contact Info) Description 07/08/2022 Abstract [facility] MED[facility] [address] [place] [address] Jonel Mcclure MD [address] [place] [address] Social History Tobacco Use Types Packs/Day Years [...] Procedure Name Priority Date/Time Associated Diagnosis Comments HM COLONOSCOPY Routine 01/29/2021 documented in this encounter Results * Hm Colonoscopy (01/29/2021) Colonoscopy Normal Normal 01/29/2021 Narrative Rhoda Garsia - 01/29/2021 11:01 AM EST Recommended 10 year follow up ( see scanned report )[facility] us Historical Provider HEALTH MAINTENANCE Edited Result - Final documented in this encounter Visit Diagnoses Not on filedocumented in this encounter Additional Health Concerns Assessment Noted Time PHQ-9 Depression Total Score: 0 04/14/19 23 2:02 PM EST documented as of this encounter Care Teams Network Operations Technician Relationship Specialty Start Date End Date Jonel Mcclure MD [address] [place] [phone] PCP - General Internal Medicine 03/21/19 documented as of this encounter
--- OUTSIDE RECORDS SUMMARY | 2024-05-16 17:47 | XMS_ITS | Encounter Summary ---
Author Organization [employer] Address [address] [facility] 7 [place] [address] Care Team Providers Care Party Planner Name Role Phone Jonel Mcclure MD Primary Care Provide r Reason for Visit * Reason Comments Pre-visit Planning SDOH Screening negat olivia and Tobacco screening negative Encounter Details Date Type Department Care Team ([facility] st Contact Info) Description 04/21/2024 Patient Outreach [facility] [address] [place] [address] Jonel Mcclure MD [address] [place] [address] Pre-visit Planning (SDOH Screening negative and Tobacco screening negative) Social History Tobacco Use Types Packs/Day Years [...] AM EDT documented as of this encounter Progress Notes * Lisa Vargas - 04/21/2024 10:02 AM EST ALYX Chance placed successful outbound call to patient for pre-visit planning. Patient name and confirmed. Patient confirms appt date and time, and has transportation arrangements. Biggest concern for appointment at this time is no concerns everything is good. Patient advised to bring to appointment a photo id and insurance card. Appropriate screenings completed in anticipation of appointment. documented in this encounter Plan of Treatment Not on file documented as of this encounter Visit Diagnoses Not on filedocumented in this encounter Additional Health Concerns Assessment Noted Time PHQ-9 Depression Total Score: 0 12/28/19 24 2:30 PM EDT documented as of this encounter Care Teams Party Planner Relationship Specialty Start Date End Date Jonel Mcclure MD [address] [place] [phone] PCP - General Internal Medicine 03/21/19 documented as of this encounter
--- OUTSIDE RECORDS SUMMARY | 2024-05-16 17:47 | XMS_ITS | Encounter Summary ---
Author Organization [employer] Address [address] [facility] 7 [place] [address] Care Team Providers Care Agent Based Modeler Name Role Phone Jonel Mcclure MD Primary Care Provide r Reason for Visit * Reason Onset Date Comments Chart Prep 04/19/2024 Encounter Details Date Type Department Care Team ([facility] st Contact Info) Description 04/19/2024 Telephone [facility] [address] [place] [address] Jonel Mcclure MD 230 [place] [address] Chart Prep Social History Tobacco Use Types Packs/Day Years [...] AM EDT documented as of this encounter Miscellaneous Notes * Telephone Encounter - Elham Ghosh [place] - 04/19/2024 6:21 PM EST Chart Prep Labs: not done Images: not applicable Vaccines due: Hep B Due and PCV20 Due Referrals: Not Applicable Screenings: Not Applicable Overdue care gaps: None Chart prep for upcoming appt with Dr.Esparza reyes. LB documented in this encounter Plan of Treatment Not on file documented as of this encounter Visit Diagnoses Not on filedocumented in this encounter Additional Health Concerns Assessment Noted Time PHQ-9 Depression Total Score: 0 12/28/19 24 2:30 PM EDT documented as of this encounter Care Teams Agent Based Modeler Relationship Specialty Start Date End Date Jonel Mcclure MD [address] [place] [phone] PCP - General Internal Medicine 03/21/19 documented as of this encounter
== END 2024-05-16 15:28 | disposition home or self-care (01) ==
LOC: HO.HSMS 14:30
PROVIDERS: PCP Internal Medicine; Visit Provider Nurse Practitioner Family
DX: G47.33 Obstructive sleep apnea (adult) (pediatric) (principal)
CPT/HCPCS: 99213

== ENCOUNTER → 2024-05-16 14:29 | Outpatient (BNVA) | payer MEDICAID, SELFPAY | PROVIDERS: PCP Internal Medicine; Visit Provider Nurse Practitioner Family | DX: G47.33 Obstructive sleep apnea (adult) (pediatric) (principal) | CPT/HCPCS: 99212 ==

== ENCOUNTER 2024-09-06 06:05 | Outpatient (REF) | payer MEDICAID, SELFPAY ==
--- OUTSIDE RECORDS SUMMARY | 2024-09-06 06:08 | XMS_ITS | Clinical Summary ---
Author Organization [employer] Address [address] [place] [address] 7t [place] [address] Care Team Providers Care Purchasing Specialist Name Role Phone Jonel Mcclure MD Primary Care Provide r Allergies Active Allergy Reactions Criticality Noted Date Comments Shellfish Allergy 02/12/2022 Medications clobetasol (Temovate) 0.05 % ointmentIndicat ions:Eczema of both hands Apply to affected area twice a day 30 g 3 Active Blood Glucose Monitoring Suppl (FreeStyle Lite) w/Device kitIndications: Prediabetes 1 application 1 (one) time per week. 1 kit 3 Active TRUEplus Lancets 33G misc USE DIRECTED TO TEST BLOOD SUGAR ONCE A WEEK 100 each 1 4 Active Repatha SureClick 140 MG/ML injection Inject 140 mg under the skin every 14 (fourteen) days. 4 Active lisinopril 5 MG tablet Take 1 tablet by mouth Once per day. 5 Active glucose blood (FREESTYLE LITE) test stripIndication s:Impaired glucose tolerance Test once daily 50 strip 3 5 Active metFORMIN XR (Glucophage-XR) 500 MG 24 hr tabletIndicatio ns:Impaired glucose tolerance TAKE 1 TABLET BY MOUTH EVERY EVENING DO NOT BREAK, CRUSH, DISSOLVE OR CHEW 90 tablet 3 5 Active Active Problems Problem Noted Date Diagnosed [...] EDT): Uses Clobetasol BID PRN Seen by Production Reproduction Manager, Dr. Christopher 07/27/2023 Assessment & Plan (03/18/2023 2:19 PM EST): Uses Clobetasol BID PRN Would like to see a vba developer, referral placed Assessment & Plan (04/14/2022 4:43 PM EST): Started on Clobetasol BID Preventative health care 04/12/2022 Assessment & Plan (05/04/2024 2:20 PM EST): PSA: Normal : 01/08/2024 Colonoscopy: 01/29/2022 showed hemorrhoids Vaccines: He states he had them all in [place] Assessment & Plan (12/28/2023 2:07 PM EDT): PSA: Normal : 07/28/2022 Colonoscopy: 01/29/2022 showed hemorrhoids Vaccines: He states he had them all in [place] Assessment & Plan (04/12/2022 10:49 AM EST): QUE[facility]: Normal : 04/18/2019 Colonoscopy: 01/29/2022 showed hemorrhoids Vaccines: He states he had them all in [place] Essential hypertension 02/12/2022 Assessment & Plan (05/04/2024 [...] AM EST): Pt initially evaluated at our [facility] , after pt c/o new onset of [...] he stopped it. . Pt seen by [employer] Developer who started him on Repatha advised to [...] he stopped it. . Pt seen by [employer] Developer who started him on Repatha advised to [...] 3 yr ago Cholesterol, Total <200 mg/dL 209 High 294 High 217 High 261 High HDL Cholesterol > OR = 40 mg/dL 41 39 Low 37 Low 35 Low Triglycerides <150 mg/dL 183 High 242 High CM 161 High 257 High CM LDL Cholesterol mg/dL (calc) 136 High 210 High CM 150 High CM 180 High CM He was on a regimen of [...] Encounters Date Type Department Care Team Description 09/01/2024 Patient Outreach [facility] [address] [place] [address] Jonel Mcclure MD Pre-visit Planning (SDOH was already completed.) 07/17/2024 Telephone [facility] [address] [place] [address] Jonel Mcclure MD CPAP 06/30/2024 Telephone [facility] [address] [place] [address] Jonel Mcclure MD Call Back Request 06/14/2024 Telephone [facility] [address] [facility] [place] [address] Jonel Mcclure MD August Recall 06/08/2024 Telephone [facility] [address] [place] [address] Jonel Mcclure MD Durable Medical Equipment from Last 3 Months Immunizations Immunization Administration Dates Next Due INFLUENZA INJECTABLE QUADRIV [...] 65 05/04/2024 1:56 PM EST Temperature 36.1 C (96.9 F) 05/04/2024 1:56 PM EST Respiratory Rate 20 05/04/2024 1:56 PM EST Oxygen Saturation 98% 05/04/2024 1:56 PM EST Inhaled Oxygen Concentration - - Weight 85.8 kg (189 lb 3.2 oz) 05/04/2024 1:56 P M EST Height 180.3 cm (5' 11 ) 05/04/2024 1:56 PM EST Body Mass Index 26.39 05/04/2024 1:56 PM EST Plan of Treatment Upcoming Encounters Date Type Department Care Team (Late st Contact Info) Description 09/07/2024 1:15 PM EDT Office Visit [facility] [address] [place] [address] Jonel Mcclure MD [address] [place] [address] Health Maintenance Due Date Last Done Comments CT Colonography 1970 FIT DNA/Cologuard 1970 FIT 1970 FOBT 1970 Sigmoidoscopy 1970 Disability Screening 1970 Hepatitis B Vaccines (1 of 3 [...] patient's age to complete this topic Meningococcal B Vaccine Aged Out No l onger eligible based on patient's age to complete [...] Procedure Name Priority Date/Time Associated Diagnosis Comments LIPID PANEL, STANDARD Routine 12/04/2023 7:48 AM EDT HEPATITIS C AB W/REFL TO HCV RNA, QN, PCR Routine 07/23/2022 8:31 AM EDT Essential hypertension HIV 1/2 ANTIGEN/ANTIBODY, FOURTH GENERATION W/RFL Routine 07/23/2022 8:31 AM EDT Essential hypertension HM COLONOSCOPY Routine 01/29/2021 from Last 3 Months or Most Recently Relevant to Health Maintenance Results * Lipid Panel, Standard (12/04/2023 7:48 AM EDT) Triglycerides 113 <150 mg/dL [facility] Comment:Desirable Triglyceri de: less than 150 mg/dLBorderline High Triglyceride 150-199 mg/dLHigh Triglyceride: 200-499 mg/dLVery High Triglyceride: greater than or equal to 5OO mg/dL Cholesterol 137 <200 mg/dL [facility] Comment:Desirable Cholestero l: less than 200 mg/dLBorderline High Cholesterol: 200-239 mg/dLHigh Cholesterol: greater than 239 mg/dL LDL Cholesterol Calculated 74 <100 mg/dL [facility] Comment:Desirable LDL: less than 100 mg/dLNear Optimal/Above Optimal LDL: 110- 129 mg/dLBorderline High LDL: 130-159 mg/dLHigh LDL: 160-189 mg/dLVery High LDL: greater than or equal to 190 mg/dL HDL Cholesterol 41 >40 mg/dL [facility] Comment:Desirable HDL: great er than 40 mg/dL Note: This HDL assay may give artificially low results in patients with liver disease. 12/04/2023 7:48 AM EDT 12/04/2023 7:49 AM EDT us Generic External Data Provider LAB BLOOD ORDERAB LES Final Result [facility] [address] [place] [phone] * Hepatitis C Antibody with Reflex to HCV, RNA, Quantitative, Real-Time PCR (07/23/2022 8:31 AM EDT) Hepatitis C Antibody NON-REACT AVERY NON-REACT AVERY [facility] [place] [employer] Index 0.04 <1.00 [facility] Comment: HCV antibody was non-reactive. There is no laboratory evidence of HCV infection. In most cases, no further action is required. However, if recent HCV exposure is suspected, a test for HCV RNA (test code 06119) is suggested. For additional information please refer to http://[employer].Lastline/faq/SWK43x9 (This link is being provided for informational/ educational purposes only.) Blood Venous blood specimen / Unknown 07/23/2022 8:31 AM EDT 07/23/2022 8:32 AM EDT Narrative [facility] - 07/28/2022 6:43 PM EDT FASTING:YES FASTING: YES Jonel Wright MD LAB BLOOD ORDERABLES Final Result [facility] [address], [place] [address] [employer] [place] [employer] [address] [place] [address] * HIV-1/2 Antigen and Antibodies, Fourth Generation, with Reflexes (07/23/2022 8:31 AM EDT) Pathologist [facility] HIV Antigen/Antibody, 4th Generation NON-REAC TIVE NON-REAC TIVE [employer] [place] [employer] Comment: HIV-1 antigen and HIV-1/HIV-2 antibodies were not detected. There is no laboratory evidence of HIV infection. PLEASE NOTE: This information has been disclosed to you from records whose confidentiality may be protected by state law. If your state requires such protection, then the state law prohibits you from making any further disclosure of the information without the specific written consent of the person to whom it pertains, or as otherwise permitted by law. A general authorization for the release of medical or other information is NOT sufficient for this purpose. For additional information please refer to http://[employer].Lastline/faq/VYH049 (This link is being provided for informational/ educational purposes only.) The performance of this assay has not been clinically validated in patients less than 2 years old. Blood Venous blood specimen / Unknown 07/23/2022 8:31 AM EDT 07/23/2022 8:32 AM EDT Narrative [facility] - 07/28/2022 6:43 PM EDT FASTING:YES FASTING: YES Jonel Wright MD LAB BLOOD ORDERABLES Final Result [facility] [address], [place] [address] [facility] [address] [place] [address] * Colonoscopy (01/29/2021) [facility] Signature Colonoscopy Normal Normal 01/29/2021 Rhoda Arredondo - 01/29/2021 11:01 AM EST Recommended 10 year follow up ( see scanned report )[facility] Historical Provider HEALTH MAINTENANCE Edited Result - Final from Last 3 Months or Most Recently Relevant to Health Maintenance Insurance [facility] [employer] Care Teams Purchasing Specialist Relationship Specialty Start Date End Date Jonel Mcclure MD [address] [place] [address] PCP - General Internal Medicine 03/21/19
[2024-09-06 07:41] LABS: Cholesterol 107 mg/dL (<200); HDL Cholesterol 41 mg/dL (>40); Triglycerides 81 mg/dL (<150)
== END 2024-09-06 06:06 | disposition home or self-care (01) ==
LOC: HO.LAB 06:05
PROVIDERS: PCP Internal Medicine; Visit Provider Internal Medicine
DX: E78.2 Mixed hyperlipidemia (principal); R73.02 Impaired glucose tolerance (oral)
CPT/HCPCS: 36415; 80061; 82947

== ENCOUNTER 2025-01-01 13:58 | Outpatient (AMB) | payer OTHER, SELFPAY ==
[2025-01-01 14:03] VITALS: BP 120/72; PULSE 63; BMI 26.2
--- NOTE | 2025-01-01 14:03 | MHC.OFFVIS ---
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 Required: No Allergies seafood Allergy (Severe, Verified 01/01/25 14:05) respiratory Vejhjzs-SBS-PxX Reductase Inhibitor Allergy (Intermediate, Verified 01/01/25 14:05) Muscle Pain Medication List - Last Reconciled 01/02/25 by Anjali Lee NP-C blood pressure test kit-large As directed blood sugar diagnostic (FreeStyle Lite Strips) As directed evolocumab (Repatha SureClick) 140 mg subcut Q2W lisinopril 5 mg PO DAILY metformin ER 500 mg PO QPM HPI HPI 1 yr follow up: Details: Arnaldo is a 54-year-old male with past medical history of hypertension, hyperlipidemia, sleep apnea, chest discomfort with CTA of the coronary arteries showing no significant CAD who presents for follow-up. Today he reports he has been doing well with no concerning symptoms. He has not been getting recent chest discomfort at rest or with activity. No shortness of breath, PND, orthopnea or edema. No lightheadedness, presyncope, syncope, falls. He is taking his Repatha as directed and is asking for a refill since his insurance recently changed. He reports intolerance to statins with muscle aching. He wears CPAP mask nightly but does remove it at times during the night. He denies issues with daytime sleepiness. Taking meds as directed. Trying to increase his physical activity. 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 Review of Systems Const All systems reviewed & are unremarkable except as noted in HPI and below ENT Denies dizziness Card Denies chest pain, Denies chest pain at rest, Denies chest pain with activity, Denies rapid heart rate, Denies pedal edema, Denies edema, Denies leg edema, Denies lightheadedness, Denies palpitations, Denies dyspnea, Denies dyspnea on exertion and Denies orthopnea Resp Denies cough, Denies dyspnea and Denies dyspnea on exertion GI Denies hematochezia and Denies change in stool character Musc Denies abnormal gait, Denies limited range of motion, Denies muscle cramps, Denies muscle weakness, Denies numbness, Denies radiating pain into limb, Denies stiffness and Denies tingling Neuro Denies abnormal gait, Denies dizziness, Denies numbness and Denies tingling Endo Denies palpitations Physical Exam Vital Signs: Last Vital Signs Pulse 63 01/01/25 14:03 BP 120/72 01/01/25 14:03 BMI result Body Mass Index 26.2 Const General: cooperative, healthy appearing, comfortable and no acute distress Orientation/consciousness: patient oriented x3 Neck Neck: Yes normal visual inspection and Yes no JVD Resp Effort & Inspection: normal respiratory effort Auscultation: clear to auscultation bilaterally, no crackles, no rales, no rhonchi and no wheezes Cardio Jugular venous distension: no JVD Rate: regular rate Rhythm: regular rhythm Heart sounds: S1 normal heart sound present, S2 normal heart sound present, no gallops, no murmurs and no rubs Neuro General: patient oriented x3 Extrem General: Yes normal to inspection, No no pedal edema and No calf tenderness Psych Appearance: grossly normal Mental Status: mental status grossly normal Speech and movement: Normal speech and movement present Office Procedures EKG Details: Today, read by me, normal sinus rhythm, rate 63, QTC 429 milliseconds [id number], Complete Assessment & Plan Assessment & Plan (1) Atypical chest pain: Code(s): R07.89 - Other chest pain Category: Medical Plan: Prior reports of atypical sounding chest discomfort. Cardiac risk factors of hypertension, hyperlipidemia, diabetes. He underwent a exercise stress test on 07/21/2023 with exercise 9 minutes with report of chest discomfort, no EKG changes. Echocardiogram done 07/21/2023 showing EF 60-65%, impaired relaxation, mild AR. He had a CTA of the coronary arteries done 12/16/2023 showing no hemodynamically significant coronary artery disease, no plaque noted. Prior chest discomfort was noncardiac. He does need ongoing cardiac risk factor modification with activity as tolerated, weight control, good blood sugar, blood pressure and cholesterol control. (2) HTN (hypertension): Code(s): I10 - Essential (primary) hypertension Category: Medical Plan: BP goal < 130/80. Well controlled at this time. No med changes made. (3) Hyperlipidemia: Code(s): E78.5 - Hyperlipidemia, unspecified Category: Medical Plan: LDL goal less than 70 in pt with diabetes. Intolerant to statins. Now on Repatha. Labs 09/06/24 show LDL 50. Refill for repatha sent.. Cardiology follow-up 1 year, sooner if needed. (4) DAWNA (obstructive sleep apnea): Code(s): G47.33 - Obstructive sleep apnea (adult) (pediatric) Category: Medical Plan: History of sleep apnea and uses CPAP each night. Plan Time spent on chart review, documentation, interview and assessment Medications: Refilled evolocumab (Repatha SureClick) 140 mg subcut Q2W 6 mL 3RF Coding Level of Care Code Est Pt Level 3 (77921) Complex EM visit Add On G2211 Diagnoses Atypical chest pain R07.89 HTN (hypertension) I10 Hyperlipidemia E78.5 DAWNA (obstructive sleep apnea) G47.33 CPT Codes EKG - CPT: 96811-[id number], Complete ([id number]) Time Spent (min) 24
--- OUTSIDE RECORDS SUMMARY | 2025-01-01 17:41 | XMS_ITS | Encounter Summary ---
Author Organization [employer] Address [address] [place] [address] 7t [place] [address] Care Team Providers Care Records Analysis Manager Name Role Phone Jonel Mcclure MD Primary Care Provide r Encounter Details Date Type Department Care Team (Late st Contact Info) Description 03/19/2022 Orders Only [facility] [address] [place] [address] [phone] Peyton Ramirez MD [address] [place], [place] [phone] Social History Tobacco Use Types Packs/Day Years [...] Care Team (Late st Contact Info) Description 01/25/2025 2:00 PM EST Office Visit [facility] [address] [place], [place] [phone] Jonel Mcclure MD [address] [place], [place] [phone] documented as of this encounter Visit Diagnoses Not on filedocumented in this encounter Care Teams Records Analysis Manager Relationship Specialty Start Date End Date Jonel Mcclure MD [address] [place] [address] PCP - General Internal Medicine 03/21/19 documented as of this encounter
--- OUTSIDE RECORDS SUMMARY | 2025-01-01 17:41 | XMS_ITS | Encounter Summary ---
Author Organization [employer] Address 75 [facility] 7t [place] [address] Care Team Providers Care Cell Stripper Final Name Role Phone Jonel Mcclure MD Primary Care Provide r Encounter Details Date Type Department Care Team ([facility] Contact Info) Description 06/17/2023 Orders Only [facility] [address] [place], [place] [phone] Jonel Mcclure MD [address] [place], [place] [phone] Social History Tobacco Use Types Packs/Day Years [...] Description 01/25/2025 2:00 PM EST Office Visit [facility] [address] [place] [address] Jonel Mcclure MD [address] [place] [address] documented as of this encounter Procedures Procedure Name Priority Date/Time Associated Diagnosis Comments BASIC METABOLIC PANEL Routine 01/08/2024 7:57 AM EDT LIPID PANEL, STANDARD Routine 12/04/2023 7:48 AM EDT BASIC METABOLIC PANEL Routine 12/04/2023 7:48 AM EDT documented in this encounter Results * (ABNORMAL) Basic Metabolic Panel (01/08/2024 7:57 AM EDT) Sodium 143 135 - 145 mmol/L [facility] Potassium 3.8 3.3 - 5.1 mmol/L [facility] Chloride 109(H) 96 - 108 mmol/L [facility] Carbon Dioxide 25 22 - 29 mmol/L [facility] Anion Gap 13 12 - 20 [facility] Urea Nitrogen (BUN) 12 9 - 16 mg/dL [facility] Creatinine, Serum 1.01 0.5 - 1.4 mg/dL [facility] Estimated Glomerular Filt Rate >60 [facility] Comment:NOTE: For -Am erican individuals, multiply the result by 1.210.Chronic Kidney Disease: Estimated GFR < 60 mL/min/1.97y8Grhlir Kidney Disease: Estimated GFR < 15 mL/min/1.73m2 Glucose 106 60 - 115 mg/dL [facility] Calcium 8.9 8.4 - 10.2 mg/dL [facility] 01/08/2024 7:57 AM EDT 01/08/2024 7:57 AM EDT us Generic External Data Provider LAB BLOOD ORDERAB LES Final Result Performing Organization Address City/[facility]/ZIP Co de Phone Number [facility] [address] [place] [phone] * Lipid Panel, Standard (12/04/2023 7:48 AM EDT) Triglycerides 113 <150 mg/dL [facility] Comment:Desirable Triglyceri de: less than 150 mg/dLBorderline High Triglyceride 150-199 mg/dLHigh Triglyceride: 200-499 mg/dLVery High Triglyceride: greater than or equal to 5OO mg/dL Cholesterol 137 <200 mg/dL [facility] Comment:Desirable Cholestero l: less than 200 mg/dLBorderline High Cholesterol: 200-239 mg/dLHigh Cholesterol: greater than 239 mg/dL LDL Cholesterol Calculated 74 <100 mg/dL [facility] Comment:Desirable LDL: less than 100 mg/dLNear Optimal/Above Optimal LDL: 110- 129 mg/dLBorderline High LDL: 130-159 mg/dLHigh LDL: 160-189 mg/dLVery High LDL: greater than or equal to 190 mg/dL HDL Cholesterol 41 >40 mg/dL [facility] Comment:Desirable HDL: great er than 40 mg/dL Note: This HDL assay may give artificially low results in patients with liver disease. 12/04/2023 7:48 AM EDT 12/04/2023 7:49 AM EDT us Generic External Data Provider LAB BLOOD ORDERAB LES Final Result [facility] [address] [place] [phone] [phone] * (ABNORMAL) Basic Metabolic Panel (12/04/2023 7:48 AM EDT) Sodium 141 135 - 145 mmol/L [facility] Potassium 3.0(L) 3.3 - 5.1 mmol/L [facility] Chloride 101 96 - 108 mmol/L [facility] Carbon Dioxide 32(H) 22 - 29 mmol/L [facility] Anion Gap 11(L) 12 - 20 [facility] Urea Nitrogen (BUN) 11 9 - 16 mg/dL [facility] Creatinine, Serum 1.01 0.5 - 1.4 mg/dL [facility] Estimated Glomerular Filt Rate >60 [facility] Comment:NOTE: For -Am erican individuals, multiply the result by 1.210.Chronic Kidney Disease: Estimated GFR < 60 mL/min/1.29x3Ttxhxp Kidney Disease: Estimated GFR < 15 mL/min/1.73m2 Glucose 125(H) 60 - 115 mg/dL [facility] Calcium 10.0 8.4 - 10.2 mg/dL [facility] 12/04/2023 7:48 AM EDT 12/04/2023 7:49 AM EDT us Generic External Data Provider LAB BLOOD ORDERAB LES Final Result [facility] [address] [place] [phone] documented in this encounter Visit Diagnoses Not on filedocumented in this encounter Additional Health Concerns Assessment Noted Time PHQ-9 Depression Total Score: 0 04/14/19 23 2:02 PM EST documented as of this encounter Care Teams Cell Stripper Final Relationship Specialty Start Date End Date Jonel Mcclure MD [address] [place] [phone] PCP - General Internal Medicine 03/21/19 documented as of this encounter
--- OUTSIDE RECORDS SUMMARY | 2025-01-01 17:41 | XMS_ITS | Encounter Summary ---
Author Organization [employer] Address [address] [place] [address] 7 [place] [address] Care Team Providers Care Petroleum Geologist Name Role Phone Jonel Mcclure MD Primary Care Provide r Encounter Details Date Type Department Care Team (Late st Contact Info) Description 07/08/2022 Abstract [facility] [address] [place] [phone] Jonel Mcclure MD [address] [place] [phone] Social History Tobacco Use Types Packs/Day Years [...] Description 01/25/2025 2:00 PM EST Office Visit [facility] [address] [place] [phone] Jonel Mcclure MD [address] [place] [address] documented as of this encounter Procedures Procedure Name Priority Date/Time Associated Diagnosis Comments COLONOSCOPY Routine 01/29/2021 documented in this encounter Results * Colonoscopy (01/29/2021) Colonoscopy Normal Normal 01/29/2021 Narrative Sun Rhoda - 01/29/2021 11:01 AM EST Recommended 10 year follow up ( see scanned report )[facility] Historical Provider HEALTH MAINTENANCE Edited Result - Final documented in this encounter Visit Diagnoses Not on filedocumented in this encounter Additional Health Concerns Assessment Noted Time PHQ-9 Depression Total Score: 0 04/14/19 23 2:02 PM EST documented as of this encounter Care Teams Petroleum Geologist Relationship Specialty Start Date End Date Jonel Mcclure MD [address] [place] [address] PCP - General Internal Medicine 03/21/19 documented as of this encounter
--- OUTSIDE RECORDS SUMMARY | 2025-01-01 17:41 | XMS_ITS | Clinical Summary ---
Author Organization [employer] Address [address] [place] [address] [address] [place] [address] Care Team Providers Care Cloth Tester Quality Name Role Phone Jonel Mcclure MD Primary [...] by mouth Once per day. 5 Active metFORMIN XR (Glucophage-XR) 500 MG 24 hr tabletIndicatio ns:Impaired glucose tolerance TAKE 1 TABLET BY MOUTH EVERY EVENING DO NOT BREAK, CRUSH, DISSOLVE OR CHEW 90 tablet 3 5 Active glucose blood (FREESTYLE LITE) test stripIndication s:Impaired glucose tolerance Test once daily 50 strip 3 5 Active cyclobenzaprine (Flexeril) 10 MG tabletIndicatio ns:Spasm of muscle of lower back One tab po at bedtime prn pain of muscles, do not drive with medicaion 30 tablet Active Active Problems Problem Noted Date Diagnosed Date Acute left-sided low back pain 10/20/2024 Assessment & Plan (10/20/2024 4:10 PM EDT): Improve the rest heat and medications, I will provide patient with a letter so that he can go back to work Precordial pain 03/18/2023 Assessment & Plan (12/28/2023 [...] EDT): Uses Clobetasol BID PRN Seen by Fha Underwriter, Dr. Christopher 07/27/2023 Assessment & Plan (03/18/2023 2:19 PM EST): Uses Clobetasol BID PRN Would like to see a cone picker, referral placed Assessment & Plan (04/14/2022 4:43 PM EST): Started on Clobetasol BID [facility] care 04/12/2022 Assessment & Plan (05/04/2024 2:20 PM EST): PSA: Normal : 01/08/2024 Colonoscopy: 01/29/2022 showed hemorrhoids Vaccines: He states he [place] them [place] in [place] Assessment & Plan (12/28/2023 2:07 PM EDT): PSA: Normal : 07/28/2022 Colonoscopy: 01/29/2022 showed hemorrhoids Vaccines: He states he [place] them [place] Assessment & Plan (04/12/2022 10:49 AM EST): [facility]: Normal : 04/18/2019 Colonoscopy: 01/29/2022 showed hemorrhoids Vaccines: He states he had them all in [place] Essential hypertension 02/12/2022 Assessment & Plan (09/07/2024 1:26 PM EDT): Patient Here for a follow up regarding his Hypertension currently controlled on a regimen of: Lisinopril 5 mg po daily ( Chlorthalidone stopped by Cardiology due to low K ) Most recent electrolytes, Bun and Creatinine done [...] counseled about weight loss. Assessment & Plan (05/04/2024 2:19 PM EST): [...] Impaired glucose tolerance 02/12/2022 Assessment & Plan (09/07/2024 1:28 PM EDT): Patient here for a f/u Pt with persistent elevated FBS Repeat 09/06/2024 : 111 Last Hgb A1c 5.6 we had recommended lifestyle changes, diet and exercise first he is on Metformin 500 mg po q PM. Assessment & Plan (05/04/2024 2:21 PM EST): [...] AM EST): Pt initially evaluated at our [facility] , after pt c/o new onset of LBP after a twisting injury. He also reported a previous Hx of Lumbar radiculopathy Pt was referred to PT, finished, uses muscle relaxants prn Goes to our Acupuncture clinic regularly Mixed hyperlipidemia 02/12/2022 Assessment & Plan (09/07/2024 1:26 PM EDT): Most recent lipid profile from: Lab Results Component Value Date TRIG 81 09/06/2024 TRIG 113 12/04/2023 CHOL 107 09/06/2024 CHOL 137 12/04/2023 LDLCHOLCAL 50 09/06/2024 LDLCHOLCAL 74 12/04/2023 HDL 41 09/06/2024 HDL 41 12/04/2023 Pt seen by It Integration Architect who started him on Repatha He was on a regimen of Atorvastatin 20 mg po at bedtime but he stopped due to c/o muscle pain and headaches, states symptoms went away after he stopped it. advised to try to adhere to a low cholesterol diet, counseled and educated about diet and exercise, Patient encouraged to come up with a personal goal for weight loss. 3 month f/u Assessment & Plan (05/04/2024 2:25 PM EST): [...] he stopped it. . Pt seen by It Integration Architect who started him on Repatha advised to [...] he stopped it. . Pt seen by It Integration Architect who started him on Repatha advised to [...] sleep apnea syndrome 02/12/2022 Assessment & Plan (09/07/2024 1:33 PM EDT): Pt here for a f/u Pt has a Cpap machine at home, reports good results with it, using it regularly Assessment & Plan (12/28/2023 2:34 PM EDT): Pt here for a f/u Pt has a Cpap machine at home, reports good results with it, using it regularly Assessment & Plan (04/14/2022 4:42 PM EST): Pt here for a f/u Pt finally has a Cpap machine at home, reports good results with it, using it regularly Encounters Date Type Department Care Team Description 11/20/2024 Telephone [facility] [address] [place] [phone] Jonel Mcclure MD November recall 10/20/2024 1:20 PM EDT Office Visit [facility] [address] [place] [phone] Allison Up MD Acute left-sided low back pain, unspecified whether sciatica present (Primary Dx) 10/20/2024 Telephone [facility] [address] [place] [phone] Jonel Mcclure MD 10/20/2024 Travel 10/16/2024 11:00 AM EDT Office Visit [facility] [address] [address] Cornelia Aggarwal MD Spasm of muscle of lower back (Primary Dx) 10/16/2024 Travel from Last 3 Months Immunizations Immunization Administration [...] Sign Reading Time Taken Comments Blood Pressure 124/74 10/20/2024 1:38 PM EDT Pulse 69 10/20/2024 1:38 PM EDT Temperature 36.6 C (97.9 F) 10/20/2024 1:38 PM EDT Respiratory Rate 18 10/20/2024 1:38 PM EDT Oxygen Saturation 98% 10/20/2024 1:38 PM EDT Inhaled Oxygen Concentration - - Weight 85.3 kg (188 lb) 10/20/2024 1:38 PM EDT Height 180.3 cm (5' 11 ) 09/07/2024 1:10 PM EDT Body Mass Index 26.22 09/07/2024 1:10 PM EDT Plan of Treatment Upcoming Encounters Date Type Department Care Team (Late st Contact Info) Description 01/25/2025 2:00 PM EST Office Visit [facility] [address] [facility] [place] [address] Jonel Mcclure MD [address] [facility] [place] [address] Health Maintenance Due Date Last Done Comments CT Colonography 1970 FIT DNA/Cologuard 1970 FIT 1970 FOBT 1970 Sigmoidoscopy 1970 Alcohol/Substance Use Screening 1982 Hepatitis B Vaccines (1 of 3 - 19+ 3-dose series) 1989 Influenza Vaccine (#1) 2024 , 12/01/2022, 01/07/2022, Additional history exists Depression Screening 12/27/2024 12/28/2023, 12/28/19 SDOH Screening 04/21/2025 04/21/2024 Disability Screening 10/16/2025 10/16/2024 Tobacco Screening 10/20/2025 10/20/2024 Lipid Panel 09/06/2029 09/06/2024, 11/07, 06/12/2023, Additional history exists Colonoscopy 01/29/2031 01/29/2021 Colorectal [...] Associated Diagnosis Comments LIPID PANEL, STANDARD Routine 09/06/2024 6:25 AM EDT Mixed hyperlipidemia HEPATITIS C AB W/REFL TO HCV RNA, QN, PCR Routine 07/23/2022 8:31 AM EDT Essential hypertension HIV 1/2 ANTIGEN/ANTIBODY, FOURTH GENERATION W/RFL Routine 07/23/2022 8:31 AM EDT Essential hypertension HM COLONOSCOPY Routine 01/29/2021 from Last 3 Months or Most Recently Relevant to Health Maintenance Results * Lipid Panel, Standard (09/06/2024 6:25 AM EDT) Triglycerides 81 <150 mg/dL [facility] Comment:Desirable Triglyceri de: less than 150 mg/dLBorderline High Triglyceride 150-199 mg/dLHigh Triglyceride: 200-499 mg/dLVery High Triglyceride: greater than or equal to 5OO mg/dL Cholesterol 107 <200 mg/dL [facility] Comment:Desirable Cholestero l: less than 200 mg/dLBorderline High Cholesterol: 200-239 mg/dLHigh Cholesterol: greater than 239 mg/dL LDL Cholesterol Calculated 50 <100 mg/dL [facility] Comment:Desirable LDL: less than 100 mg/dLNear Optimal/Above Optimal LDL: 110- 129 mg/dLBorderline High LDL: 130-159 mg/dLHigh LDL: 160-189 mg/dLVery High LDL: greater than or equal to 190 mg/dL HDL Cholesterol 41 >40 mg/dL [facility] Comment:Desirable HDL: great er than 40 mg/dL Note: This HDL assay may give artificially low results in patients with liver disease. Blood Venous blood specimen / Unknown 09/06/2024 6:25 AM EDT 09/06/2024 6:25 AM EDT Jonel Wright MD LAB BLOOD ORDERABLES Final Result Performing Organization Address City/[facility] [address]/ZIP Co de Phone Number [facility] [address] [place] [phone] * Hepatitis C Antibody with Reflex to HCV, RNA, Quantitative, Real-Time PCR (07/23/2022 8:31 AM EDT) Pathologist [facility] Hepatitis C Antibody NON-REACT AVERY NON-REACT AVERY [facility] [place] [facility] Index 0.04 <1.00 [facility] [place] [facility] Comment: HCV antibody was non-reactive. There is no laboratory evidence of HCV infection. In most cases, no further action is required. However, if recent HCV exposure is suspected, a test for HCV RNA (test code 57286) is suggested. For additional information please refer to http://education.Anc[employer]/faq/JJA67s1 (This link is being provided for informational/ educational purposes only.) Blood Venous blood specimen / Unknown 07/23/2022 8:31 AM EDT 07/23/2022 8:32 AM EDT Narrative [facility] - 07/28/2022 6:43 PM EDT FASTING:YES FASTING: YES Jonel Wright MD LAB BLOOD ORDERABLES Final Result Performing Organization Address City/[facility] [address]/ZIP Co de Phone Number [facility] [address] [place] [address] [facility] [place] [facility] [address] [place] [address] * HIV-1/2 Antigen and Antibodies, Fourth Generation, with Reflexes (07/23/2022 8:31 AM EDT) Pathologist [facility] HIV Antigen/Antibody, 4th Generation NON-REAC TIVE NON-REAC TIVE [facility] [place] [facility] Comment: HIV-1 antigen and HIV-1/HIV-2 antibodies [...] purpose. For additional information please refer to http://education.Ancanco/faq/WUC811 (This link is being provided for informational/ educational purposes only.) The performance of this assay has not been clinically validated in patients less than 2 years old. Blood Venous blood specimen / Unknown 07/23/2022 8:31 AM EDT 07/23/2022 8:32 AM EDT Narrative [facility] - 07/28/2022 6:43 PM EDT FASTING:YES FASTING: YES Jonel Wright MD LAB BLOOD ORDERABLES Final Result [facility] [address], [place] [address] [facility] [place] [facility] [address] [place] [address] * Colonoscopy (01/29/2021) Colonoscopy Normal Normal 01/29/2021 Rhoda Arredondo - 01/29/2021 11:01 AM EST Recommended 10 year follow up ( see scanned report )[facility] [place] HEALTH MAINTENANCE Edited Result - Final from Last 3 Months or Most Recently Relevant to Health Maintenance Insurance [facility] [employer] Member Subscriber Plan / Payer (Ef fective 2023-Present) Name:Kenny ChristyArnaldo desai Relation to Subscriber:Self Name:Arnaldo Hutson Payer ID:[id number] Group ID:Not on file Type:Not on file Address: [address] [place], [place] Care Teams Cloth Tester Quality Relationship Specialty Start Date End Date Jonel Mcclure MD [address] [place] [address] PCP - General Internal Medicine 03/21/19
== END 2025-01-01 14:39 | disposition home or self-care (01) ==
LOC: HO.HCS 13:58
PROVIDERS: PCP Internal Medicine; Visit Provider Nurse Practitioner Family
DX: R07.89 Other chest pain (principal); I10 Essential (primary) hypertension; E78.5 Hyperlipidemia, unspecified; G47.33 Obstructive sleep apnea (adult) (pediatric)
CPT/HCPCS: 93010; 99213

== ENCOUNTER → 2025-01-01 13:58 | Outpatient (BNVA) | payer OTHER, SELFPAY | PROVIDERS: PCP Internal Medicine; Visit Provider Nurse Practitioner Family | DX: I10 Essential (primary) hypertension (principal); E78.5 Hyperlipidemia, unspecified; G47.33 Obstructive sleep apnea (adult) (pediatric); R07.89 Other chest pain; Z99.89 Dependence on other enabling machines and devices | CPT/HCPCS: 93005; 99212 ==

== ENCOUNTER 2025-01-27 07:59 | Outpatient (REF) | payer OTHER, SELFPAY ==
--- OUTSIDE RECORDS SUMMARY | 2025-01-25 14:00 | XMS_ITS | Encounter Summary ---
Author Organization [employer] Address [address] [place] [address] 7 [place] [address] Care Team Providers Care Control And Recovery Combat Rescue Name Role Phone Jonel Mcclure MD Primary Care Provide r Reason for Visit * Reason Comments Follow up Encounter Details Date Type Department Care Team ([facility] st Contact Info) Description 01/25/2025 2:00 PM EST Office Visit [facility] [address] [place] [address] Jonel Mcclure MD [address] [place] [address] Seasonal allergies (Primary Dx); Essential hypertension; Mixed hyperlipidemia; Preventative health care; Obstructive sleep apnea syndrome Social History Tobacco Use Types Packs/Day Years [...] Answer Date Recorded Patient Health Questionnaire-9 Score 3 01/25/2025 Patient Health Questionnaire-9 Score 3 01/25/2025 Last PHQ-9: Questionnaire Data Not on file 1 03/27/2024 Housing Stability Answer Date Recorded What is [...] Date Recorded Patient Health Questionnaire-2 Score 0 01/25/2025 Internet Access Answer Date Recorded Internet Access [...] Sign Reading Time Taken Comments Blood Pressure 104/70 01/25/2025 1:59 PM EST Pulse 76 01/25/2025 1:59 PM EST Temperature 36.3 C (97.4 F) 01/25/2025 1:59 PM EST Respiratory Rate 17 01/25/2025 1:59 PM EST Oxygen Saturation - - Inhaled Oxygen Concentration - - Weight 86.3 kg (190 lb 3.2 oz) 01/25/2025 1:59 P M EST Height 180.3 cm (5' 11 ) 01/25/2025 1:59 PM EST Body Mass Index 26.53 01/25/2025 1:59 PM EST documented in this encounter Functional Status * Over the past 2 weeks, how often have you been bothered by any of the following problems? Question Answer Date of Assessment Author Patient Health Questionnaire-2 Score 0 01/07 2:00 PM EST Alicia Cardoso MA * Little interest or pleasure in doing things Answer Date of Assessment Author Not at all 01/25/2025 2:00 PM Alicia Toscano MA * Feeling down, depressed, or hopeless Answer Date of Assessment Author Not at all 01/25/2025 2:00 PM Alicia Toscano MA * Trouble falling or staying asleep, or sleeping too much Answer Date of Assessment Author Nearly every day 01/25/2025 2:00 PM Alicia Toscano MA * Feeling tired or having little energy Answer Date of Assessment Author Not at all 01/25/2025 2:00 PM Alicia Toscano MA * Poor appetite or overeating Answer Date of Assessment Author Not at all 01/25/2025 2:00 PM Alicia Toscano MA * Feeling bad about yourself - or that you are a failure or have let yourself or your family down Answer Date of Assessment Author Not at all 01/25/2025 2:00 PM Alicia Toscano MA * Trouble concentrating on things, such as reading the newspaper or watching television Answer Date of Assessment Author Not at all 01/25/2025 2:00 PM Alicia Toscano MA * Moving or speaking so slowly that other people could have noticed? Or the opposite - being so fidgety or restless that you have been moving around a lot more than usual. Answer Date of Assessment Author Not at all 01/25/2025 2:00 PM Alicia Toscano MA * Thoughts that you would be better off or hurting yourself in some way Answer Date of Assessment Author Not at all 01/25/2025 2:00 PM Alicia Toscano MA * Patient Health Questionnaire-9 Score Answer Date of Assessment Author 3 01/25/2025 2:00 PM Alicia Toscano MA * How difficult have these problems made it for you to do your work, take care of things at home, or get along with other people? Answer Date of Assessment Author Not difficult at all 01/25/2025 2:00 PM Alicia Ayala MA documented as of this encounter Progress Notes * Jonel Wright MD - 01/25/2025 2:00 PM EST SUBJECTIVE Arnaldo Christy is a 54 y.o. male who presents for Follow up . Arnaldo Christy, 54 years Allergic Rhinitis - Noted worsening episodes of nasal discharge and allergy symptoms, occurring suddenly and lasting throughout the day - Symptoms described as persistent and bothersome - Suspects possible triggers from pets, specifically a cat - Takes daily antihistamine (loratadine), reports no relief from current medication Hypercholesterolemia - Insurance denied coverage for Repatha, received notification requiring authorization and representation by physician - Ongoing issues with insurance approval for Repatha for approximately 2 weeks prior to visit - Expressed interest in laboratory testing for cholesterol, but aware that results may be elevated without Repatha use Misc - Expressed confusion and concern regarding current health insurance status and coverage for medications and equipment - Provided insurance card at registration, but uncertainty remains about coverage and eligibility HPI Review of Systems Constitutional: Negative for fever. HENT: Negative for sore throat. Respiratory: Negative for cough and shortness of breath. Cardiovascular: Negative for chest pain. Gastrointestinal: Negative for abdominal pain. Neurological: Negative for headaches. Allergies[1] OBJECTIVE Vitals: 01/25/25 1359 BP: 104/70 BP Location: Left arm Patient Position: Sitting BP Cuff Size: Adult Pulse: 76 Resp: 17 Temp: 97.4 ??F (36.3 ??C) TempSrc: Oral Weight: 190 lb 3.2 oz (86.3 kg) Height: 5' 11 (1.803 m) Physical [...] Assessment/Plan Problem List Items Addressed This Visit Seasonal allergies - Primary Allergic rhinitis with rhinorrhea, likely triggered by environmental allergens. - Prescribed cetirizine 10 mg daily. Prescribed nasal spray, 1-2 sprays in each nostril once daily.Advised to continue allergy management. Relevant Medications fluticasone (Flonase) 50 MCG/ACT nasal spray cetirizine (ZyrTEC) 10 MG tablet Essential hypertension Patient Here for a follow [...] HDL 41 09/06/2024 HDL 41 12/04/2023 Pt was on Repatha (Prescribed by Cardiology) ( did not tolerate Atorvastatin 2 due to c/o muscle pain and headaches) advised to try to adhere to a low cholesterol diet, counseled and educated about diet and exercise,Patient encouraged to come up with a personal goal for weight loss. Patient tells me Rn Appeals is going through the PA process 3 month f/u Preventative health care PSA: Normal : 01/08/2024, will repeat Colonoscopy: 01/29/2022 showed hemorrhoids Vaccines: He states he had them all in [place] Relevant Orders PSA, Screen Hepatitis B Surface Antibody, Qualitative Hepatitis B surface antigen, EIA Hepatitis B Core Antibody, Total Obstructive sleep apnea syndrome Pt here for a f/u Pt has a Cpap machine at home, reports good results with it, using it regularly Pt tells me the supplies are not being given [facility] This note was drafted using Ambient (AI) technology. The patient/patient's guardian has been informed and has consented to the use of this technology: Yes No future appointments. [1] Allergies Allergen Reactions Seafood [Shellfish Allergy] documented in this encounter Miscellaneous Notes * Assessment & Plan Note - Jonel Wright MD - 01/25/2025 2:46 PM EST Associated Problem(s): Seasonal allergies Allergic rhinitis with rhinorrhea, likely triggered by environmental allergens. - Prescribed cetirizine 10 mg daily. Prescribed nasal spray, 1-2 sprays in each nostril once daily.Advised to continue allergy management. * Assessment & Plan Note - Jonel Wright MD - 01/25/2025 2:13 PM EST Associated Problem(s): Obstructive sleep apnea syndrome Pt here for a f/u Pt has a Cpap machine at home, reports good results with it, using it regularly Pt tells me the supplies are not being given from [facility] * Assessment & Plan Note - Jonel Wright MD - 01/25/2025 2:04 PM EST Associated Problem(s): Preventative health care PSA: Normal : 01/08/2024, will repeat Colonoscopy: 01/29/2022 showed hemorrhoids Vaccines: He states he had them all in [place] * Assessment & Plan Note - Jonel Wright MD - 01/25/2025 2:04 PM EST Associated Problem(s): Mixed hyperlipidemia Most recent lipid profile from: Lab Results Component Value Date TRIG 81 09/06/2024 TRIG 113 12/04/2023 CHOL 107 09/06/2024 CHOL 137 12/04/2023 LDLCHOLCAL 50 09/06/2024 LDLCHOLCAL 74 12/04/2023 HDL 41 09/06/2024 HDL 41 12/04/2023 Pt was on Repatha (Prescribed by Cardiology) ( did not tolerate Atorvastatin 2 due to c/o muscle pain and headaches) advised to try to adhere to a low cholesterol diet, counseled and educated about diet and exercise,Patient encouraged to come up with a personal goal for weight loss. Patient tells me Rn Appeals is going through the PA process 3 month f/u * Assessment & Plan Note - Jonel Wright MD - 01/25/2025 2:03 PM EST Associated Problem(s): Essential hypertension Patient [...] about medication compliance, counseled about weight loss. documented in this encounter Plan of Treatment Scheduled Orders Name Type Priority Associated Diagnoses Orde r Schedule PSA, Screen Lab Routine Preventative health care Ordered: 01/25/2025 Hepatitis B Surface Antibody, Qualitative Lab Routine Preventative health care Expected: 01/25/2025 (Approximate), Expires: 01/25/2026 Hepatitis B surface antigen, EIA Lab Routine Preventative health care Expected: 01/25/2025 (Approximate), Expires: 01/25/2026 Hepatitis B Core Antibody, Total Lab Routine Preventative health care Expected: 01/25/2025 (Approximate), Expires: 01/25/2026 documented as of this encounter Visit Diagnoses Diagnosis Seasonal allergies- Primary Allergic rhinitis, cause unspecified Essential hypertension Unspecified essential hypertension Mixed hyperlipidemia Preventative health care Routine general medical examination at a health care facility Obstructive sleep apnea syndrome Obstructive sleep apnea (adult) (pediatric) documented in this encounter Additional Health Concerns Assessment Noted Time PHQ-9 Depression Total Score: 3 01/26/20 25 2:00 PM EST documented as of this encounter Care Teams Control And Recovery Combat Rescue Relationship Specialty Start Date End Date Jonel Mcclure MD [address] [place] [address] PCP - General Internal Medicine 03/21/19 documented as of this encounter
--- OUTSIDE RECORDS SUMMARY | 2025-01-27 08:02 | XMS_ITS | Encounter Summary ---
Author Organization [employer] Address [address] [facility] 7t [place] [address] Care Team Providers Care Accounting Tutor Name Role Phone Jonel Mcclure MD Primary Care Provide r Encounter Details Date Type Department Care Team ([facility] Contact Info) Description 06/17/2023 Orders Only [facility] MEDICINE [address] [place], [place] [phone] Jonel Mcclure MD [address] [place], [place] [phone] Social History Tobacco Use Types Packs/Day Years [...] EDT) Sodium 143 135 - 145 mmol/L [facility] Potassium 3.8 3.3 - 5.1 mmol/L [facility] Chloride 109(H) 96 - 108 mmol/L [facility] Carbon Dioxide 25 22 - 29 mmol/L [facility] Anion Gap 13 12 - 20 [facility] Urea Nitrogen (BUN) 12 9 - 16 mg/dL [facility] Creatinine, Serum 1.01 0.5 - 1.4 mg/dL [facility] Estimated Glomerular Filt Rate >60 [facility] Comment:NOTE: For -Am erican individuals, multiply the result by 1.210.Chronic Kidney Disease: Estimated GFR < 60 mL/min/[id number] Kidney Disease: Estimated GFR < 15 mL/min/1.73m2 Glucose 106 60 - 115 mg/dL [facility] Calcium 8.9 8.4 - 10.2 mg/dL [facility] 01/08/2024 7:57 AM EDT 01/08/2024 7:57 AM EDT us Generic External Data Provider LAB BLOOD ORDERAB LES Final Result Performing Organization Address [facility]/ZIP Co de Phone Number [facility] [address] [place] [address] [phone] * Lipid Panel, Standard (12/04/2023 7:48 AM EDT) Triglycerides 113 <150 mg/dL [facility] Comment:Desirable Triglyceri de: less than 150 mg/dLBorderline High Triglyceride 150-199 mg/dLHigh Triglyceride: 200-499 mg/dLVery High Triglyceride: greater than or equal to 5OO mg/dL Cholesterol 137 <200 mg/dL [facility] Comment:Desirable Cholestero l: less than 200 mg/dLBorderline High Cholesterol: 200-239 mg/dLHigh Cholesterol: greater than 239 mg/dL LDL Cholesterol Calculated 74 <100 mg/dL [facility] Comment:Desirable LDL: less than 100 mg/dLNear Optimal/Above Optimal LDL: 110- 129 mg/dLBorderline High LDL: 130-159 mg/dLHigh LDL: 160-189 mg/dLVery High LDL: greater than or equal to 190 mg/dL HDL Cholesterol 41 >40 mg/dL [facility] Comment:Desirable HDL: great er than 40 mg/dL Note: This HDL assay may give artificially low results in patients with liver disease. 12/04/2023 7:48 AM EDT 12/04/2023 7:49 AM EDT us Generic External Data Provider LAB BLOOD ORDERAB LES Final Result Performing Organization Address City/[facility]/ZIP Co de Phone Number [facility] [address] [place] [address] [phone] * (ABNORMAL) Basic Metabolic Panel (12/04/2023 7:48 AM EDT) Sodium 141 135 - 145 mmol/L [facility] Potassium 3.0(L) 3.3 - 5.1 mmol/L [facility] Chloride 101 96 - 108 mmol/L [facility] Carbon Dioxide 32(H) 22 - 29 mmol/L [facility] Anion Gap 11(L) 12 - 20 [facility] Urea Nitrogen (BUN) 11 9 - 16 mg/dL [facility] Creatinine, Serum 1.01 0.5 - 1.4 mg/dL [facility] Estimated Glomerular Filt Rate >60 [facility] Comment:NOTE: For -Am erican individuals, multiply the result by 1.210.Chronic Kidney Disease: Estimated GFR < 60 mL/min/1.66f3Onvcwt Kidney Disease: Estimated GFR < 15 mL/min/1.73m2 Glucose 125(H) 60 - 115 mg/dL [facility] Calcium 10.0 8.4 - 10.2 mg/dL [facility] 12/04/2023 7:48 AM EDT 12/04/2023 7:49 AM EDT us Generic External Data Provider LAB BLOOD ORDERAB LES Final Result [facility] [address] [place] [phone] documented in this encounter Visit Diagnoses Not on filedocumented in this encounter Additional Health Concerns Assessment Noted Time PHQ-9 Depression Total Score: 0 04/14/19 23 2:02 PM EST documented as of this encounter Care Teams Accounting Tutor Relationship Specialty Start Date End Date Jonel Mcclure MD [address] [place] [phone] PCP - General Internal Medicine 03/21/19 documented as of this encounter
--- OUTSIDE RECORDS SUMMARY | 2025-01-27 08:02 | XMS_ITS | Clinical Summary ---
Author Organization [employer] Address [address] [place] [address] 7t [place] [address] Care Team Providers Care Compotype Operator Name Role Phone Jonel Mcclure MD [...] not drive with medicaion 30 tablet Active fluticasone (Flonase) 50 MCG/ACT nasal sprayIndication s:Seasonal allergies Administer 1-2 sprays into each nostril Once per day. Shake gently. Before first use, prime pump. After use, clean tip and replace cap. 16 g 2 5 01/26/20 26 Active cetirizine (ZyrTEC) 10 MG tabletIndicatio ns:Seasonal allergies Take 1 tablet (10 mg) by mouth Once per day. 30 tablet 2 5 04/25/19 26 Active Active Problems Problem Noted Date Diagnosed Date Seasonal allergies 01/25/2025 Assessment & Plan (01/25/2025 2:46 PM EST): Allergic rhinitis with rhinorrhea, likely triggered by environmental allergens. - Prescribed cetirizine 10 mg daily. Prescribed nasal spray, 1-2 sprays in each nostril once daily. Advised to continue allergy management. Acute left-sided low back pain 10/20/2024 Assessment [...] EDT): Uses Clobetasol BID PRN Seen by Body Painter, Dr. Christopher 07/27/2023 Assessment & Plan (03/18/2023 2:19 PM EST): Uses Clobetasol BID PRN Would like to see a production line mechanic, referral placed Assessment & Plan (04/14/2022 4:43 PM EST): Started on Clobetasol BID Preventative health care 04/12/2022 Assessment & Plan (01/25/2025 2:04 PM EST): PSA: Normal : 01/08/2024, will repeat Colonoscopy: 01/29/2022 showed hemorrhoids Vaccines: He states he had them all in [place] Assessment & Plan (05/04/2024 2:20 PM EST): PSA: Normal : 01/08/2024 Colonoscopy: 01/29/2022 showed hemorrhoids Vaccines: He states he had them all in [place] Assessment & Plan (12/28/2023 2:07 PM EDT): PSA: Normal : 07/28/2022 Colonoscopy: 01/29/2022 showed hemorrhoids Vaccines: He states he had them all in [place] Assessment & Plan (04/12/2022 10:49 AM EST): QUEENIE: Normal : 04/18/2019 Colonoscopy: 01/29/2022 showed hemorrhoids Vaccines: He states he had them all in [place] Essential hypertension 02/12/2022 Assessment & Plan (01/25/2025 2:03 PM EST): Patient Here for a follow [...] counseled about weight loss. Assessment & Plan (09/07/2024 1:26 PM EDT): [...] AM EST): Pt initially evaluated at our [facility] , after pt c/o new onset of LBP after a twisting injury. He also reported a previous Hx of Lumbar radiculopathy Pt was referred to PT, finished, uses muscle relaxants prn Goes to our Acupuncture clinic regularly Mixed hyperlipidemia 02/12/2022 Assessment & Plan (01/25/2025 2:10 PM EST): Most recent lipid profile from: [...] goal for weight loss. Patient tells me Insurance Verification Specialist is going through the PA process 3 month f/u Assessment & Plan (09/07/2024 1:26 PM EDT): Most recent lipid profile from: Lab Results Component Value Date TRIG 81 09/06/2024 TRIG 113 12/04/2023 CHOL 107 09/06/2024 CHOL 137 12/04/2023 LDLCHOLCAL 50 09/06/2024 LDLCHOLCAL 74 12/04/2023 HDL 41 09/06/2024 HDL 41 12/04/2023 Pt seen by Insurance Verification Specialist who started him on Repatha He was [...] he stopped it. . Pt seen by Insurance Verification Specialist who started him on Repatha advised to [...] he stopped it. . Pt seen by Insurance Verification Specialist who started him on Repatha advised to [...] sleep apnea syndrome 02/12/2022 Assessment & Plan (01/25/2025 2:13 PM EST): Pt here for a f/u Pt has a Cpap machine at home, reports good results with it, using it regularly Pt tells me the supplies are not being given from [facility] Assessment & Plan (09/07/2024 1:33 PM EDT): [...] Encounters Date Type Department Care Team Description 01/25/2025 2:00 PM EST Office Visit [facility] [place] [address] Jonel Mcclure MD Seasonal allergies (Primary Dx); Essential hypertension; Mixed hyperlipidemia; Preventative health care; Obstructive sleep apnea syndrome 01/25/2025 Travel 01/24/2025 Telephone [facility] [place] [address] Jonel Mcclure MD Chart Prep 01/23/2025 Orders Only [facility] [place] [address] Jonel cMclure MD Mixed hyperlipidemia (Primary Dx) 01/18/2025 Telephone [facility] [place] [address] Jonel Mcclure MD Lab Orders 01/17/2025 Patient Outreach [facility] [place] [address] Jonel Mcclure MD Pre-visit Planning (SDOH screening was completed on 04/21/2024) 11/20/2024 Telephone [facility] [place] [address] Jonel Mcclure MD January recall from Last 3 Months Immunizations Immunization Administration [...] 17 01/25/2025 1:59 PM EST Oxygen Saturation 98% 10/20/2024 1:38 PM EDT Inhaled Oxygen Concentration - - Weight 86.3 kg (190 lb 3.2 oz) 01/25/2025 1:59 P M EST Height 180.3 cm (5' 11 ) 01/25/2025 1:59 PM EST Body Mass Index 26.53 01/25/2025 1:59 PM EST Plan of Treatment Health Maintenance Due Date Last Done Comments CT Colonography 1970 FIT DNA/Cologuard 1970 FIT 1970 FOBT 1970 Sigmoidoscopy 1970 Hepatitis B Vaccines (1 of 3 - 19+ 3-dose series) 1989 SDOH Screening 04/21/2025 04/21/2024 Disability Screening 10/16/2025 10/16/2024 Alcohol/Substance Use Screening 01/25/2026 01/25/2025 Depression Screening 01/25/2026 01/25/2025, 01/26/20 Tobacco Screening 01/25/2026 01/25/2025 Lipid Panel 09/06/2029 09/06/2024, 09/2 10/2023, 06/12/2023, Additional history exists Colonoscopy 01/29/2031 01/29/2021 Colorectal Cancer Screening 01/29/2031 DTaP/Tdap/Td Vaccines (2 - Td or Tdap) 2031 10/27/2021 RSV Patients and Patients Aged 60 years or older (1 - 1-dose 75+ series) 2045 Zoster Vaccines Completed 10/27/2021, 07/29/2021 HIV Screening Completed 07/23/2022 Hepatitis C Screening Completed 07/23/2022 Pneumococcal Vaccine: 50+ Years Completed 05/04/2024 COVID-19 Vaccine Completed 12/09/2024, , 01/18/2023, Additional history exists Influenza Vaccine Completed 12/09/2024, , 12/01/2022, Additional history exists HIB Vaccines Aged Out [...] 6:25 AM EDT) Triglycerides 81 <150 mg/dL [facility] Comment:Desirable Triglyceri de: less than 150 mg/dLBorderline High Triglyceride 150-199 mg/dLHigh Triglyceride: 200-499 mg/dLVery High Triglyceride: greater than or equal to 5OO mg/dL Cholesterol 107 <200 mg/dL [facility] Comment:Desirable Cholestero l: less than 200 mg/dLBorderline High Cholesterol: 200-239 mg/dLHigh Cholesterol: greater than 239 mg/dL LDL Cholesterol Calculated 50 <100 mg/dL [facility] Comment:Desirable LDL: less than 100 mg/dLNear Optimal/Above Optimal LDL: 110- 129 mg/dLBorderline High LDL: 130-159 mg/dLHigh LDL: 160-189 mg/dLVery High LDL: greater than or equal to 190 mg/dL HDL Cholesterol 41 >40 mg/dL [facility] Comment:Desirable HDL: great er than 40 mg/dL Note: This HDL assay may give artificially low results in patients with liver disease. Blood Venous blood specimen / Unknown 09/06/2024 6:25 AM EDT 09/06/2024 6:25 AM EDT us Jonel Wright MD LAB BLOOD ORDERABLES Final Result [facility] [address] [place] [phone] * Hepatitis C Antibody with Reflex to HCV, RNA, Quantitative, Real-Time PCR (07/23/2022 8:31 AM EDT) Hepatitis C Antibody NON-REACT AVERY NON-REACT AVERY [facility] Index 0.04 <1.00 [facility] Comment: HCV antibody was non-reactive. There is no laboratory evidence of HCV infection. In most cases, no further action is required. However, if recent HCV exposure is suspected, a test for HCV RNA (test code 38976) is suggested. For additional information please refer to http://education.Nextinit/faq/UOH58n0 (This link is being provided for informational/ educational purposes only.) Blood Venous blood specimen / Unknown 07/23/2022 8:31 AM EDT 07/23/2022 8:32 AM EDT Narrative [facility] - 07/28/2022 6:43 PM EDT FASTING:YES FASTING: YES Jonel Wright MD LAB BLOOD ORDERABLES Final Result [facility] [address] [place] [address], [facility] [place] [address] [facility] [address] [place] [phone] * HIV-1/2 Antigen and Antibodies, Fourth Generation, with Reflexes (07/23/2022 8:31 AM EDT) [facility] HIV Antigen/Antibody, 4th Generation NON-REAC TIVE NON-REAC TIVE [facility] [place] [facility] Comment: HIV-1 antigen and HIV-1/HIV-2 antibodies [...] purpose. For additional information please refer to http://education.Serus.Rapid RMS/faq/WVV479 (This link is being provided for informational/ educational purposes only.) The performance of this assay has not been clinically validated in patients less than 2 years old. Blood Venous blood specimen / Unknown 07/23/2022 8:31 AM EDT 07/23/2022 8:32 AM EDT Narrative [facility] - 07/28/2022 6:43 PM EDT FASTING:YES FASTING: YES Jonel Wright MD LAB BLOOD ORDERABLES Final Result [address], [place] [phone] [facility] [address] [place] [address] * Colonoscopy (01/29/2021) Colonoscopy Normal Normal 01/29/2021 Rhoda Arredondo - 01/29/2021 11:01 AM EST Recommended 10 year follow up ( see scanned report )[facility] Historical Provider HEALTH MAINTENANCE Edited Result - Final from Last 3 Months or Most Recently Relevant to Health Maintenance Insurance [facility] [employer] Member Subscriber Plan / Payer (Ef fective 2023-Present) Name:KennyLara Win Relation to Subscriber:Self Name:Lara Carrasco Payer ID:[id number] Group ID:Not on file Type:Not on file Address: [address] [place], [place] Care Teams Compotype Operator Relationship Specialty Start Date End Date Jonel Mcclure MD [address] [place] [phone] PCP - General Internal Medicine 03/21/19
--- OUTSIDE RECORDS SUMMARY | 2025-01-27 08:03 | XMS_ITS | Encounter Summary ---
Author Organization [employer] Address [address] [place] [address] 7t [place] [address] Care Team Providers Care Bottle Washing Machine Operator Name Role Phone Jonel Mcclure MD Primary Care Provide r Encounter Details Date Type Department Care Team ([facility] st Contact Info) Description 03/19/2022 Orders Only [facility] MEDICINE [address] [place] [address] Peyton Ramirez MD [address] [place], [place] [phone] Social History Tobacco Use Types Packs/Day Years [...] on filedocumented in this encounter Care Teams Bottle Washing Machine Operator Relationship Specialty Start Date End Date Jonel Mcclure MD [address] [place] [phone] PCP - General Internal Medicine 03/21/19 documented as of this encounter
--- OUTSIDE RECORDS SUMMARY | 2025-01-27 08:03 | XMS_ITS | Encounter Summary ---
Author Organization [employer] Address [address] [place] [address] 7 [place] [address] Care Team Providers Care Rotary Drier Operator Name Role Phone Jonel Mcclure MD Primary Care Provide r Reason for Visit * Reason Onset Date Comments Lab Orders 01/18/2025 Encounter Details Date Type Department Care Team ([facility] st Contact Info) Description 01/18/2025 Telephone [facility] MEDICINE [address] [place] [address] Jonel Mcclure MD [address] [place] [address] Lab Orders Social History Tobacco Use Types Packs/Day Years [...] AM EDT documented as of this encounter Functional Status * Over the past 2 weeks, how often have you been bothered by any of the following problems? Question Answer Date of Assessment Author Patient Health Questionnaire-2 Score 0 01/07 2:00 PM Alicia Toscano MA * Little interest or pleasure in [...] Ayala MA documented as of this encounter Miscellaneous Notes * Telephone Encounter - Nneka Ga RN - 01/25/2025 2:21 PM EST Called [facility], spoke with Ally, asking for update RE: message. She said their office does not have updated insurance information on file so the DME cannot be processed. RN received verbal consent from pt to give [facility] his new insurance information. Ally is sending a message to their billing and insurance coordinator now for review, confirms has new prescription on file from 09/2024, and advised for the pt to call back next week to order supplies. Will task to call [facility] to make sure situation isall set, and then advise pt to call himself to order. Pt states he needs all new equipment (mask, tubing, etc). * Telephone Encounter - Nneka Ga RN - 01/24/2025 10:04 AM EST Called pt to inform that lab orders (fasting) placed, no answer, left voicemail. Sent [employer] message. * Telephone Encounter - Nneka Ga RN - 01/18/2025 9:58 AM EST Repatha - prescribed by Dr. Boateng at [facility] cardiology. Called their office today, left voicemail asking about status Lab orders for lipid panel - sent message to PCP, pt has appointment 01/25/25 CPAP supplies - DME request sent 07/21/24 and additional info sent 09/06/24. Called [facility], spoke to Swati who said the pt's insurance changed to [employer] around 12/25/24 and they might not cover the supplies but she will have the CPAP office call back [phone]. * Telephone Encounter - Nneka Ga RN - 01/18/2025 9:54 AM EST ----- Message from Lisa Vargas sent at 01/17/2025 2:55 PM EST ----- CC placed a call to patient to complete PVP screening. Patient has few concerns: Patient haven't been taking Rephata injection over a month but Baking Powder Mixer is working on it but patient would like toget a lab order before upcoming appointment to check how is everything specially that he has not been taking the Rephata. Patient also has CPAP machine through [facility] but since his insurance changedper patient provider needs to do something in order for him to receive his supplies. Message sent to team nurses to review and follow up with patient. documented in this encounter Plan of Treatment Not on file documented as of this encounter Visit Diagnoses Not on filedocumented in this encounter Additional Health Concerns Assessment Noted Time PHQ-9 Depression Total Score: 0 12/28/19 24 2:30 PM EDT documented as of this encounter Care Teams Rotary Drier Operator Relationship Specialty Start Date End Date Jonel Mcclure MD [address] [place] [address] PCP - General Internal Medicine 03/21/19 documented as of this encounter
--- OUTSIDE RECORDS SUMMARY | 2025-01-27 08:03 | XMS_ITS | Encounter Summary ---
Author Organization [employer] Address [address] [facility] [address] 7t [place] [address] Care Team Providers Care Product Safety Consultant Name Role Phone Jonel Mcclure MD Primary Care Provide r Encounter Details Date Type Department Care Team (Latest Contact Info) Description 01/25/2025 Travel Social History Tobacco Use Types Packs/Day [...] Not at all 01/25/2025 2:00 PM Alicia Tosacno MA * Trouble concentrating on things, such as reading the newspaper or watching television Answer Date of Assessment Author Not at all 01/25/2025 2:00 PM EST Alicia Cardoso MA * Moving or speaking so slowly that other people could have noticed? Or the opposite - being so fidgety or restless that you have been moving around a lot more than usual. Answer Date of Assessment Author Not at all 01/25/2025 2:00 PM EST Alicia Cardoso MA * Thoughts that you would be better off or hurting yourself in some way Answer Date of Assessment Author Not at all 01/25/2025 2:00 PM EST Alicia Cardoso MA * Patient Health Questionnaire-9 Score Answer Date of Assessment Author 3 01/25/2025 2:00 PM Alicia Toscano MA * How difficult have these problems made it for you to do your work, take care of things at home, or get along with other people? Answer Date of Assessment Author Not difficult at all 01/25/2025 2:00 PM EST Alicia Patel MA documented as of this encounter Plan of Treatment Not on file documented as of this encounter Visit Diagnoses Not on filedocumented in this encounter Additional Health Concerns Assessment Noted Time PHQ-9 Depression Total Score: 3 01/26/20 25 2:00 PM EST documented as of this encounter Care Teams Product Safety Consultant Relationship Specialty Start Date End Date Jonel Mcclure MD [address] [place] [address] PCP - General Internal Medicine 03/21/19 documented as of this encounter
--- OUTSIDE RECORDS SUMMARY | 2025-01-27 08:03 | XMS_ITS | Encounter Summary ---
Author Organization [employer] Address [address] [facility] 7t [place] [address] Care Team Providers Care Fisher Sponge Hooking Name Role Phone Jonel Mcclure MD Primary Care Provide r Encounter Details Date Type Department Care Team ([facility] Contact Info) Description 01/23/2025 Orders Only [facility] [address] [place] [address] Jonel Mcclure MD [address] [place], [place] [phone] Mixed hyperlipidemia (Primary Dx) Social History Tobacco Use Types Packs/Day Years [...] as of this encounter Plan of Treatment Scheduled Orders Name Type Priority Associated Diagnoses Orde r Schedule Comprehensive Metabolic Panel Lab Routine Mixed hyperlipidemia Expected: 01/23/2025 (Approximate), Expires: 01/23/2026 Lipid Panel, Standard Lab Routine Mixed hyperlipidemia Expected: 01/23/2025 (Approximate), Expires: 01/23/2026 documented as of this encounter Visit Diagnoses Diagnosis Mixed hyperlipidemia- Primary documented in this encounter Additional Health Concerns Assessment Noted Time PHQ-9 Depression Total Score: 0 12/28/19 24 2:30 PM EDT documented as of this encounter Care Teams Fisher Sponge Hooking Relationship Specialty Start Date End Date Jonel Mcclure MD [address] [place] [address] PCP - General Internal Medicine 03/21/19 documented as of this encounter
--- OUTSIDE RECORDS SUMMARY | 2025-01-27 08:03 | XMS_ITS | Encounter Summary ---
Author Organization [employer] Address [address] [place] [address] 7 [place] [address] Care Team Providers Care Senior Business Development Analyst Name Role Phone Jonel Mcclure MD Primary Care Provide r Reason for Visit * Reason Onset Date Comments Chart Prep 01/24/2025 Encounter Details Date Type Department Care Team ([facility] st Contact Info) Description 01/24/2025 Telephone [facility] MEDICINE [address] [place] [address] Jonel Mcclure MD [address] [place] [address] Chart Prep Social History Tobacco Use Types [...] encounter Miscellaneous Notes * Telephone Encounter - Alicia Cardoso MA - 01/24/2025 3:46 PM EST Chart Prep Labs: not done Images: not applicable Referrals: no referrals, pending appointment [place] [facility] [place] 05/16/2025 @ 2:30 pm and [facility] [place] 01/01/2026 @ 1:45 pm. Vaccines due: Covid and Flu Screenings: not applicable Overdue care gaps: SBIRT documented in this encounter Plan of Treatment Not on file documented as of this encounter Visit Diagnoses Not on filedocumented in this encounter Additional Health Concerns Assessment Noted Time PHQ-9 Depression Total Score: 0 12/28/19 24 2:30 PM EDT documented as of this encounter Care Teams Senior Business Development Analyst Relationship Specialty Start Date End Date Jonel Mcclure MD [address] [place] [phone] PCP - General Internal Medicine 03/21/19 documented as of this encounter
--- OUTSIDE RECORDS SUMMARY | 2025-01-27 08:03 | XMS_ITS | Encounter Summary ---
Author Organization [facility] [employer] Address [address] [place] [address] [address] [place] [address] Care Team Providers Care Negative Assembler Name Role Phone Jonel Mcclure MD Primary Care Provide r Encounter Details Date Type Department Care Team ([facility] st Contact Info) Description 07/08/2022 Abstract [facility] [address] [place] [address] Jonel Mcclure MD [address] [place] [address] Social History Tobacco Use Types Packs/Day Years [...] year follow up ( see scanned report )[facility] [place] us Historical Provider HEALTH MAINTENANCE Edited Result - Final documented in this encounter Visit Diagnoses Not on filedocumented in this encounter Additional Health Concerns Assessment Noted Time PHQ-9 Depression Total Score: 0 04/14/19 23 2:02 PM EST documented as of this encounter Care Teams Negative Assembler Relationship Specialty Start Date End Date Jonel Mcclure MD [address] [place] [address] PCP - General Internal Medicine 03/21/19 documented as of this encounter
[2025-01-27 10:00] LABS: Alanine Aminotransferase 15 U/L (0-40); Albumin Level 4.3 g/dL (3.5-5.0); Alkaline Phosphatase 60 U/L (39-117); Anion Gap 13 (12-20); Aspartate Amino Transferase 24 U/L (5-37); Blood Urea Nitrogen 11 mg/dL (9-16); Calcium 9.1 mg/dL (8.4-10.2); Carbon Dioxide 26 mmol/L (22-29); Chloride 106 mmol/L (96-108); Cholesterol 197 mg/dL (<200); Estimated Glomerular Filt Rate > 60; HDL Cholesterol 43 mg/dL (>40); Potassium 4.0 mmol/L (3.3-5.1); Sodium 141 mmol/L (135-145); Total Protein 6.9 g/dL (6.5-8.0); Triglycerides 93 mg/dL (<150)
[2025-01-27 10:10] LABS: HBS Num1 1.15 mIU/mL (0-7.99); HBc Num1 0.05 S/CO (0.00-0.79); HBsAGNum1 0.39 S/CO (0.00-0.99); Hepatitis B Surface Antigen Negative (Negative); ~Hepatitis B Surface Antibody NONREACTIVE (Nonreactive)
== END 2025-01-27 08:00 | disposition home or self-care (01) ==
LOC: HO.LAB 07:59
PROVIDERS: PCP Internal Medicine; Visit Provider Internal Medicine
DX: Z00.00 Encounter for general adult medical examination without abnormal findings (principal); Z01.84 Encounter for antibody response examination; Z11.59 Encounter for screening for other viral diseases; E78.2 Mixed hyperlipidemia
CPT/HCPCS: 36415; 80053; 80061; 84153; 86704; 86706; 87340